=== PATIENT | male | born 2000 | race Hispanic/Latino ===

== ENCOUNTER 2025-02-18 14:32 | Emergency (ER) | payer OTHER ==
[~2025-02-18] VITALS: Ht 175.3 cm; Wt 81.2 kg
--- NOTE | 2025-02-18 14:55 | ERN ---
General Chief Complaint: Multiple Complaints Stated Complaint: FEVER,NAUSEA,DIARRHEA,CHILLS, AND BACK PAIN Time Seen by MD: 14:33 History of Present Illness Initial Comments 24-year-old male otherwise healthy presents for body aches, headache, sore throat, mild cough, nausea, diarrhea. Has been present for about three days now. Allergies: Coded Allergies: No Known Drug Allergies (Unverified Allergy, Unknown, 02/18/25) ROS Dictation VITAL SIGNS: Reviewed. GENERAL APPEARANCE: Alert, oriented x3, no acute distress, obese. HEAD AND FACE: Non-traumatic. EYES: PERRL, pink conjunctivas, eyelid no trauma, anterior chamber clear. EARS: Pinnas intact and no signs of trauma or erythema. Ear canals clear and no discharge. TMs no erythema. NOSE: No discharge, no bleeding. OROPHARYNX: Mouth normal, teeth no caries, tongue pink. Pharynx clear, no moreno thema. Tonsils no exudates, no abscesses noted. Mucous membrane moist. NECK: Supple, non-tender, no thyromegaly, no masses, no JVD, no bruits. BREAST: Deferred. CHEST: No tenderness, no crepitus, no paradoxical movement, no retractions. LUNGS: Clear, well-ventilated, symmetric, no rales, no wheezing, no rhonchi, no stridor, good breath sounds bilaterally. HEART: Regular rate, regular rhythm, no murmur, no gallops. VASCULAR: No peripheral edema. ABDOMEN: Soft, positive bowel sounds, nondistended, no guarding, nontender, no rebound, no masses no hepatomegaly, no splenomegaly, no Perkins's sign, no hernias. RECTAL: Deferred. GENITAL: Deferred. NEUROLOGICAL: Normal speech, gross motor function intact, gross sensory function intact. MUSCULOSKELETAL: Neck nontender, full range of motion, back nontender, full range of motion. EXTREMITIES: Nontender, full range of motion. SKIN: Color pink, dry, no turgor, no rash, no lacerations, no abrasions, no contusions. LYMPHATICS: Deferred. Physical Exam Physical Exam Dictation CONSTITUTIONAL: Fever body ache. HEAD/FACE: No signs of trauma. EENT: Sore throat RESPIRATORY: No cough, no orthopnea, no SOB, no stridor, no wheezing. CARDIOVASCULAR: No chest pain, no edema, no palpitations, no syncope. GASTROINTESTINAL/ABDOMINAL: Nausea abdominal pain vomiting GENITOURINARY: No abnormal discharge, no dysuria, no frequent urination, no hematuria. No complaints of pain in the genitals. MUSCULOSKELETAL: No back pain, no gout, no joint pain, no joint swelling, no muscle pain, no muscle stiffness, no neck pain. INTEGUMENTARY: No change in color, no change in hair/nails, no dryness, no lesion, no lumps, no rash. NEUROLOGICAL/PSYCH: No anxiety, not depressed, no emotional problem, no headache, no numbness, no pre-existing deficit, no history of seizures, no tremors, no weakness. HEMATOLOGIC/LYMPHATIC: Not anemic, no history of blood clots, no apparent bleeding, no bruising, glands not swollen. All Systems Negative, Except as Noted. Results Laboratory and Microbiology Lab and Micro Result Laboratory Tests Test 02/18/25 14:56 02/18/25 16:06 Influenza Type A Antigen Negative For Type A Influenza Type B Antigen Negative For Type B SARS-CoV-2 Antigen (Rapid) PRESUMPTIVE NEGATIVE White Blood Count 9.4 K/uL (4.8-10.8) Red Blood Count 4.91 MIL/uL (4.50-6.20) Hemoglobin 14.9 g/dL (14.0-18.0) Hematocrit 43.5 % (42-54) Mean Corpuscular Volume 88.6 fL (79-99) Mean Corpuscular Hemoglobin 30.3 pg (27.0-33.0) Mean Corpuscular Hemoglobin Concent 34.3 g/dL (32.0-36.0) Red Cell Distribution Width 11.6 % (11.0-15.5) Platelet Count 156 K/uL (130-400) Mean Platelet Volume 10.6 fL (7.5-10.5) H Immature Granulocyte % (Auto) 0.4 % (0-1) Neutrophils (%) (Auto) 72.5 % (40.0-77.0) Lymphocytes (%) (Auto) 12.1 % (21.0-51.0) L Monocytes (%) (Auto) 14.9 % (3.0-13.0) H Eosinophils (%) (Auto) 0.0 % (0.0-8.0) Basophils (%) (Auto) 0.1 % (0.0-5.0) Neutrophils # (Auto) 6.8 K/uL (1.8-7.7) Lymphocytes # (Auto) 1.1 K/uL (1.0-4.8) Monocytes # (Auto) 1.4 K/uL (0.1-1.0) H Eosinophils # (Auto) 0.00 K/uL (0.00-0.70) Basophils # (Auto) 0.01 K/uL (0.00-0.20) Absolute Immature Granulocyte (auto 0.04 K/uL (0-1) Nucleated Red Blood Cells 0.0 % (0.0-0.19) Sodium Level 137 mmol/L (136-145) Potassium Level 3.9 mmol/L (3.5-5.1) Chloride Level 98 mmol/L (101-111) L Carbon Dioxide Level 31 mmol/L (21-32) Blood Urea Nitrogen 10 mg/dL (7-18) Creatinine 1.4 mg/dL (0.5-1.3) H Glomerular Filtration Rate Calc 71 mL/min (>90) Random Glucose 100 mg/dL (70-105) Lactic Acid Level 1.4 mmol/L (0.8-2.5) Total Calcium 8.7 mg/dL (8.5-10.1) MDM CC: Fevers chills body aches cough nausea Historian: Patient was seen comorbidities: None Limitations by social determinants of health: None Differential diagnosis: Viral illness, flu-like illness, bacterial infection, sepsis, other Vital signs: febrile mildly tachycardic 102 otherwise unremarkable. Improved in the ER. Labs ( independently ordered and interpreted by me ): No leukocytosis no anemia. The metabolic panel is unremarkable. Lactic acid is normal. Flu SARS are negative. No imaging indicated With treatment in ED: 1 L lactated Ringer's, 50 mg IV Toradol, Zofran, Tylenol Re-evaluation: Vital signs improved. P.o. tolerant nontoxic in appearance. No signs of SIRS or sepsis. Patient was symptoms most consistent with influenza type illness. He was no obvious source of the infection. We will recommend Tylenol and ibuprofen as an outpatient PCP follow up. ED Course Orders Procedure Category Date Status Time Cbc With Differential LAB 02/18/25 Complete 14:55 Basic Metabolic Panel LAB 02/18/25 Complete 14:55 Lactated Ringers PHA 02/18/25 Complete 1000ml (Lactated 15:00 Lactic Acid LAB 02/18/25 Complete 14:55 Ketorolac PHA 02/18/25 Complete Tromethamine 15mg/Ml 15:00 Covid19 (Sars Antigen LAB 02/18/25 Complete Rapid) 14:55 Influenza Type A & B, LAB 02/18/25 Complete Rapid 14:55 Ondansetron 4mg Inj PHA 02/18/25 Complete (Zofran 4mg Inj) 15:00 Acetaminophen 500mg PHA 02/18/25 Complete Tab (Tylenol 500mg T 15:00 Blood Cult MELLY 02/18/25 Logged 14:55 Current Medications Medications (Trade) Dose Ordered Sig/Elizabeth Route PRN Reason Start Time Stop Time Status Last Admin Dose Admin Acetaminophen (TYLenol 500MG TAB) 1,000 mg ONCE ONCE PO 02/18/25 15:00 02/18/25 15:01 DC 02/18/25 16:18 Ketorolac Tromethamine (toRADol) 15 mg ONCE ONCE IV 02/18/25 15:00 02/18/25 15:01 DC 02/18/25 16:17 Lactated Ringer's 1,000 ml @ 0 mls/hr ONCE ONCE IV 02/18/25 15:00 02/18/25 15:01 DC 02/18/25 16:17 Ondansetron HCl (zoFRAN 4MG INJ) 4 mg ONCE ONCE IVP 02/18/25 15:00 02/18/25 15:01 DC 02/18/25 16:17 Vital Signs Date Time Temp Pulse Resp B/P (MAP) Pulse Ox O2 Delivery O2 Flow Rate FiO2 02/18/25 16:18 102.4 02/18/25 14:51 102.4 102 22 113/69 97 Room Air 0 DX & DISP Disposition: Discharge Departure Impression: Primary Impression: Febrile illness Condition: Stable Scripts Amoxicillin/Potassium Clav (Amox Tr-K Clv 875-125 mg Tab) 875 Mg-125 Mg Tablet 1 TAB PO BID for 10 Days, #20 TAB 0 Refills Prov: TRACEY DEXTER DO 02/18/25 Additional Instructions: The source of your fever is unclear. You may have a viral versus bacterial syndrome. Your lab work is unremarkable. Your flu and COVID swabs are negative. I have prescribed Augmentin, which is an antibiotic. Take as prescribed. Alternate Tylenol (1000 mg) and ibuprofen (800 mg) every 4 hours as needed for fever or discomfort. Follow up with your primary doctor in 48 hours if you continue with symptoms. Referrals: SELF,REFERRAL (PCP) TRACEY DEXTER DO Feb 18, 2025 14:55
[2025-02-18 15:21] LABS: COVID19 (SARS ANTIGEN RAPID) PRESUMPTIVE NEGATIVE (NEGATIVE); INFLUENZA TYPE A Negative For Type A (NEGATIVE); INFLUENZA TYPE B Negative For Type B (NEGATIVE)
[2025-02-18] MEDS: LACTATED RINGERS 1000ML 1,000 ML IV ONE (16:17)
[2025-02-18] MEDS: ketOROlac 15MG/ML VIAL (15MG/ML) IV ONE (16:17)
[2025-02-18] MEDS: ondanSETRON 4MG INJ IVP ONE (16:17)
[2025-02-18] MEDS: acetaMINOPHEN 500 MG TABLET PO ONE (16:18)
[2025-02-18 16:19] LABS: BASOPHILS # (AUTO) 0.01 K/uL (0.00-0.20); BASOPHILS % (AUTO) 0.1 % (0.0-5.0); HEMATOCRIT 43.5 % (42-54); IMMATURE GRANULOCYTE ABSOLUTE 0.04 K/uL (0-1); LYMPHOCYTES # (AUTO) 1.1 K/uL (1.0-4.8); LYMPHOCYTES % (AUTO) 12.1 % (21.0-51.0); MEAN CORPUSCULAR HEMOGLOBIN 30.3 pg (27.0-33.0); MEAN CORPUSCULAR HGB CONC 34.3 g/dL (32.0-36.0); MEAN CORPUSCULAR VOLUME 88.6 fL (79-99); MONOCYTES # (AUTO) 1.4 K/uL (0.1-1.0); MONOCYTES % (AUTO) 14.9 % (3.0-13.0); NEUTROPHILS # (AUTO) 6.8 K/uL (1.8-7.7); NEUTROPHILS % (AUTO) 72.5 % (40.0-77.0); PLATELET COUNT (AUTO) 156 K/uL (130-400); RED BLOOD CELL COUNT(AUTO) 4.91 MIL/uL (4.50-6.20); RED CELL DISTRIBUTION WIDTH 11.6 % (11.0-15.5); WHITE BLOOD COUNT (AUTO) 9.4 K/uL (4.8-10.8)
[2025-02-18 16:22] LABS: CREATININE 1.4 mg/dL (0.5-1.3); POTASSIUM 3.9 mmol/L (3.5-5.1)
[2025-02-18] MEDS ORDERED: AMOX1TAB16 PO (17:05)
[2025-02-18 17:17] VITALS: BP 115/73; PULSE 88; RESP 20; TEMP 100; O2SAT 97
== END 2025-02-18 17:24 | disposition home or self-care (01) ==
LOC: EDH 14:32
DX: R50.9 Fever, unspecified (principal); Z20.822 Contact with and (suspected) exposure to COVID-19
CPT/HCPCS: 99284; 96374; 96361; 96375; 87426; 80048; 85025; 87040 ×2; 87804 ×2; 83605; 36415; J1885; J7120; J2405

== ENCOUNTER 2025-02-19 08:30 | Inpatient (IN) | payer OTHER ==
[~2025-02-19] VITALS: Ht 175.3 cm; Wt 79.3 kg
[~2025-02-19 08:30] MED LIST: AMOX1TAB16 PO
--- NOTE | 2025-02-19 08:37 | NUR ---
PT JUST NOW PLACED IN MY ED BED 9. APPARENTLY PT WAS HERE YESTERDAY WELL AT [facility] [place] [facility]
--- NOTE | 2025-02-19 09:11 | ERN ---
General Chief Complaint: Abdominal Pain Stated Complaint: ABD PAIN Time Seen by MD: 08:32 History of Present Illness Initial Comments 24-year-old male, no medical or surgical history, presents for abdominal pain vomiting diarrhea and fever. Patient reports that he has been having back pains nausea and headache with fever for a few days now. Yesterday's already with diarrhea and vomiting. He was evaluated here, he had lab work which was unremarkable. You returns this morning because he continues with vomiting now he reports that his epigastric area is quite tender. No urinary symptoms. He has not had a stool in a couple of days. Allergies: Coded Allergies: No Known Drug Allergies (Unverified Allergy, Unknown, 02/18/25) Home Meds Active Scripts Amoxicillin/Potassium Clav (Amox Tr-K Clv 875-125 mg Tab) 875 Mg-125 Mg Tablet, 1 TAB PO BID for 10 Days, #20 TAB 0 Refills Prov:TRACEY DEXTER 02/18/25 Past Medical History Past Medical History: No Pertinent History Past Surgical History: Other Surgical History Other: HERNIA REPAIR ROS Dictation CONSTITUTIONAL: Fever HEAD/FACE: No signs of trauma. EENT: No eye pain, no blurred vision, no tearing, no double vision, no ear pain, no ear discharge, no nose pain, no nasal congestion, no throat pain, no throat swelling, no mouth pain. RESPIRATORY: No cough, no orthopnea, no SOB, no stridor, no wheezing. CARDIOVASCULAR: No chest pain, no edema, no palpitations, no syncope. GASTROINTESTINAL/ABDOMINAL: Abdominal pain vomiting diarrhea. GENITOURINARY: No abnormal discharge, no dysuria, no frequent urination, no hematuria. No complaints of pain in the genitals. MUSCULOSKELETAL: No back pain, no gout, no joint pain, no joint swelling, no muscle pain, no muscle stiffness, no neck pain. INTEGUMENTARY: No change in color, no change in hair/nails, no dryness, no lesion, no lumps, no rash. NEUROLOGICAL/PSYCH: No anxiety, not depressed, no emotional problem, no headache, no numbness, no pre-existing deficit, no history of seizures, no tremors, no weakness. HEMATOLOGIC/LYMPHATIC: Not anemic, no history of blood clots, no apparent bleeding, no bruising, glands not swollen. All Systems Negative, Except as Noted. Physical Exam Physical Exam Dictation VITAL SIGNS: Reviewed. GENERAL APPEARANCE: Alert, oriented x3, no acute distress, obese. HEAD AND FACE: Non-traumatic. EYES: PERRL, pink conjunctivas, eyelid no trauma, anterior chamber clear. EARS: Pinnas intact and no signs of trauma or erythema. Ear canals clear and no discharge. TMs no erythema. NOSE: No discharge, no bleeding. OROPHARYNX: Mouth normal, teeth no caries, tongue pink. Pharynx clear, no erythema. Tonsils no exudates, no abscesses noted. Mucous membrane moist. NECK: Supple, non-tender, no thyromegaly, no masses, no JVD, no bruits. BREAST: Deferred. CHEST: No tenderness, no crepitus, no paradoxical movement, no retractions. LUNGS: Clear, well-ventilated, symmetric, no rales, no wheezing, no rhonchi, no stridor, good breath sounds bilaterally. HEART: Regular rate, regular rhythm, no murmur, no gallops. VASCULAR: No peripheral edema. ABDOMEN: Generalized epigastric discomfort RECTAL: Deferred. GENITAL: Deferred. NEUROLOGICAL: Normal speech, gross motor function intact, gross sensory function intact. MUSCULOSKELETAL: Neck nontender, full range of motion, back nontender, full range of motion. EXTREMITIES: Nontender, full range of motion. SKIN: Color pink, dry, no turgor, no rash, no lacerations, no abrasions, no contusions. LYMPHATICS: Deferred. Results Laboratory and Microbiology Lab and Micro Result Laboratory Tests Test 02/19/25 08:40 02/19/25 11:40 White Blood Count 8.7 K/uL (4.8-10.8) Red Blood Count 5.18 MIL/uL (4.50-6.20) Hemoglobin 15.9 g/dL (14.0-18.0) Hematocrit 46.2 % (42-54) Mean Corpuscular Volume 89.2 fL (79-99) Mean Corpuscular Hemoglobin 30.7 pg (27.0-33.0) Mean Corpuscular Hemoglobin Concent 34.4 g/dL (32.0-36.0) Red Cell Distribution Width 11.6 % (11.0-15.5) Platelet Count 152 K/uL (130-400) Mean Platelet Volume 10.7 fL (7.5-10.5) H Immature Granulocyte % (Auto) 0.3 % (0-1) Neutrophils (%) (Auto) 76.5 % (40.0-77.0) Lymphocytes (%) (Auto) 10.8 % (21.0-51.0) L Monocytes (%) (Auto) 12.1 % (3.0-13.0) Eosinophils (%) (Auto) 0.1 % (0.0-8.0) Basophils (%) (Auto) 0.2 % (0.0-5.0) Neutrophils # (Auto) 6.6 K/uL (1.8-7.7) Lymphocytes # (Auto) 0.9 K/uL (1.0-4.8) L Monocytes # (Auto) 1.1 K/uL (0.1-1.0) H Eosinophils # (Auto) 0.01 K/uL (0.00-0.70) Basophils # (Auto) 0.02 K/uL (0.00-0.20) Absolute Immature Granulocyte (auto 0.03 K/uL (0-1) Nucleated Red Blood Cells 0.0 % (0.0-0.19) Prothrombin Time 10.7 SEC (9.6-11.6) Prothromb Time International Ratio 1.01 (0.85-1.15) Sodium Level 140 mmol/L (136-145) Potassium Level 3.6 mmol/L (3.5-5.1) Chloride Level 99 mmol/L (101-111) L Carbon Dioxide Level 32 mmol/L (21-32) Blood Urea Nitrogen 10 mg/dL (7-18) Creatinine 1.2 mg/dL (0.5-1.3) Glomerular Filtration Rate Calc 86 mL/min (>90) Random Glucose 104 mg/dL (70-105) Lactic Acid Level 3.5 mmol/L (0.8-2.5) H Total Calcium 8.6 mg/dL (8.5-10.1) Total Bilirubin 1.3 mg/dL (0.2-1.0) H Direct Bilirubin 0.3 mg/dL (0.0-0.3) Aspartate Amino Transf (AST/SGOT) 35 U/L (10-37) Alanine Aminotransferase (ALT/SGPT) 62 U/L (12-78) Alkaline Phosphatase 64 U/L (50-136) Total Protein 7.9 g/dL (6.0-8.3) Albumin 3.8 g/dL (3.5-5.0) Lipase 40 U/L (16-77) Urine Color LIGHT-YELLOW (YELLOW) Urine Appearance CLEAR (CLEAR) Urine pH 8.0 (5.0-8.0) Urine Specific [place] 1.016 (1.001-1.031) Urine Protein 10 mg/dL (NEGATIVE) H Urine Glucose (UA) NEGATIVE mg/dL (NEGATIVE) Urine Ketones 20 mg/dL (NEGATIVE) H Urine Occult Blood NEGATIVE (NEGATIVE) Urine Nitrate NEGATIVE (NEGATIVE) Urine Bilirubin NEGATIVE mg/dL (NEGATIVE) Urine Urobilinogen 2.0 mg/dL (0.2-1.0) H Urine Leukocyte Esterase NEGATIVE [place]/uL Urine RBC 2-5 /HPF (0-1) H Urine WBC 0-1 /HPF (0-1) Urine Squamous Epithelial Cells RARE /HPF (0-2) Urine Bacteria None /HPF (None Seen) MDM CC: Fever, body aches, nausea, vomiting, fevers some loose stools. Historian: Patient Comorbidities: None Limitations by social determinants of health: None Differential diagnosis: Sepsis, GI pathology, surgical pathology, viral illness, other. Vital signs: Febrile, 101.8, pulse 122, respiration stable blood pressure stable. Labs (independently ordered and interpreted by me. The CBC shows a white count 8.7 K, there was no shift. The metabolic panel is relatively unremarkable, mildly elevated creatinine 1.2. Lactic acid is elevated 3.5. Coags are stable Lipase stable CT of the abdomen and pelvis unremarkable Treatment in ED: 1 g Rocephin, lactated Ringer's Patient was trigger sepsis. This is a 2nd visit. I do not see any obvious source of infection. I discussed the plan with the patient, since this is 2nd visit in the procedure with the vomiting, we will admit for IV fluids in to make sure that it he lactic corrects and to ensure that the fever resolves. Fever of unknown source, sepsis unknown source. Patient was agreeable to this plan. On sepsis focused re-evaluation after the fluid bolus and antibiotics, the patient was stable perfusion, cap refill less than 2 seconds, stable vital signs. Consultation: Hospitalist for admission. Patient agrees with the plan ED Course Orders Procedure Category Date Status Time Ct Abdomen/Pelvis CT 02/19/25 Resulted W/Contrast 09:04 Lactated Ringers PHA 02/19/25 Complete 1000ml (Lactated 09:30 Morphine 4mg Syg PHA 02/19/25 Complete (Morphine 4mg Syg) 09:30 Ondansetron 4mg Inj PHA 02/19/25 Complete (Zofran 4mg Inj) 09:30 Cbc With Differential LAB 02/19/25 Complete 08:40 Basic Metabolic Panel LAB 02/19/25 Complete 08:40 Hepatic Function Panel LAB 02/19/25 Complete 08:40 Lactic Acid (Removed) LAB 02/19/25 Complete 08:40 Lipase LAB 02/19/25 Complete 08:40 Prolactin LAB 02/19/25 In Process 08:40 Prothrombin Time With LAB 02/19/25 Complete INR 08:40 Blood Cult MELLY 02/19/25 In Process 08:40 Blood Cult MELLY 02/19/25 In Process 08:40 Ketorolac PHA 02/19/25 Complete Tromethamine 15mg/Ml 10:00 Lactated Ringers PHA 02/19/25 In Process 1000ml (Lactated 10:30 Iohexol (Omnipaque) PHA 02/19/25 Complete 11:21 Urinalysis Profile LAB 02/19/25 Complete 11:40 Acetaminophen 500mg PHA 02/19/25 Complete Tab (Tylenol 500mg T 13:00 Ondansetron 4mg Inj PHA 02/19/25 Complete (Zofran 4mg Inj) 13:30 Ceftriaxone 1g Vial PHA 02/19/25 In Process (Rocephine 1g Inj) 14:00 Current Medications Medications (Trade) Dose Ordered Sig/Elizabeth Route PRN Reason Start Time Stop Time Status Last Admin Dose Admin Acetaminophen (TYLenol 500MG TAB) 1,000 mg ONCE ONCE PO 02/19/25 13:00 02/19/25 13:01 DC 02/19/25 13:05 Ceftriaxone Sodium (ROCEphine 1G INJ) 1 gm ONCE ONCE IVPB 02/19/25 14:00 02/19/25 14:01 Iohexol (Omnipaque) 75 ml STK-MED ONCE IV 02/19/25 11:21 02/19/25 11:21 DC Ketorolac Tromethamine (toRADol) 15 mg ONCE ONCE IV 02/19/25 10:00 02/19/25 10:01 DC 02/19/25 13:05 Lactated Ringer's 1,000 ml @ 999 mls/hr Q1H1M IV 02/19/25 09:30 02/19/25 10:25 DC 02/19/25 09:14 Lactated Ringer's 1,000 ml @ 999 mls/hr Q1H1M IV 02/19/25 10:30 03/21/25 10:29 02/19/25 13:27 Morphine Sulfate (morPHINE 4MG SYG) 4 mg ONCE ONCE IVP 02/19/25 09:30 02/19/25 09:31 DC 02/19/25 09:14 Ondansetron HCl (zoFRAN 4MG INJ) 4 mg ONCE ONCE IVP 02/19/25 09:30 02/19/25 09:31 DC 02/19/25 09:14 Ondansetron HCl (zoFRAN 4MG INJ) 4 mg ONCE ONCE IVP 02/19/25 13:30 02/19/25 13:31 DC Vital Signs Date Time Temp Pulse Resp B/P (MAP) Pulse Ox O2 Delivery O2 Flow Rate FiO2 02/19/25 13:05 102.6 02/19/25 12:35 102.4 99 18 125/71 99 Room Air* 0 21 02/19/25 08:31 101.8 122 20 130/78 99 Room Air 0 DX & DISP Disposition: Inpatient Departure Impression: Primary Impression: Sepsis Additional Impressions: Dehydration, Gastroenteritis Critical Time: 30 minutes (Critical Care Procedure NoteAuthorized and Performed by: meTotal critical care time: Approximately 36 minutesDue to a high probability of clinically significant, life threatening deterioration, the patient required my highest level of preparedness to intervene emergently and I personally spent this critical care time directly and personally managing the patient. This critical care time included obtaining a history; examining the patient; pulse oximetry; ordering and review of studies; arranging urgent treatment with development of a management plan; evaluation of patient's response to treatment; frequent reassessment; and, discussions with other providers.This critical care time was performed to assess and manage the high probability of imminent, life-threatening deterioration that could result in multi-organ failure. It was exclusive of separately billable procedures and treating other patients and teaching time.Please see MDM section and the rest of the note for further information on patient assessment and treatment.) Condition: Stable Referrals: HOSEA ELLINGTON MD (PCP) TRACEY DEXTER DO February 19, 2025 09:11
[2025-02-19] MEDS: morPHINE 4 MG SYG IVP ONE (09:14)
[2025-02-19] MEDS: ondanSETRON 4MG INJ IVP ONE ×2 (09:14→14:27)
[2025-02-19] MEDS: LACTATED RINGERS 1000ML 1,000 ML IV SCH ×2 (09:14→10:38)
[2025-02-19 09:17] LABS: BASOPHILS # (AUTO) 0.02 K/uL (0.00-0.20); BASOPHILS % (AUTO) 0.2 % (0.0-5.0); EOSINOPHILS # (AUTO) 0.01 K/uL (0.00-0.70); EOSINOPHILS % (AUTO) 0.1 % (0.0-8.0); HEMATOCRIT 46.2 % (42-54); IMMATURE GRANULOCYTE ABSOLUTE 0.03 K/uL (0-1); LYMPHOCYTES # (AUTO) 0.9 K/uL (1.0-4.8); LYMPHOCYTES % (AUTO) 10.8 % (21.0-51.0); MEAN CORPUSCULAR HEMOGLOBIN 30.7 pg (27.0-33.0); MEAN CORPUSCULAR HGB CONC 34.4 g/dL (32.0-36.0); MEAN CORPUSCULAR VOLUME 89.2 fL (79-99); MONOCYTES # (AUTO) 1.1 K/uL (0.1-1.0); MONOCYTES % (AUTO) 12.1 % (3.0-13.0); NEUTROPHILS # (AUTO) 6.6 K/uL (1.8-7.7); NEUTROPHILS % (AUTO) 76.5 % (40.0-77.0); PLATELET COUNT (AUTO) 152 K/uL (130-400); RED BLOOD CELL COUNT(AUTO) 5.18 MIL/uL (4.50-6.20); RED CELL DISTRIBUTION WIDTH 11.6 % (11.0-15.5); WHITE BLOOD COUNT (AUTO) 8.7 K/uL (4.8-10.8)
[2025-02-19 09:21] LABS: ALBUMIN 3.8 g/dL (3.5-5.0); BILIRUBIN,DIRECT 0.3 mg/dL (0.0-0.3); BILIRUBIN,TOTAL 1.3 mg/dL (0.2-1.0); CREATININE 1.2 mg/dL (0.5-1.3); POTASSIUM 3.6 mmol/L (3.5-5.1); TOTAL PROTEIN, SERUM 7.9 g/dL (6.0-8.3)
[2025-02-19 09:24] LABS: INR 1.01 (0.85-1.15); PROTHROMBIN TIME 10.7 SEC (9.6-11.6)
--- NOTE | 2025-02-19 10:36 | NUR ---
PT STILL PENDING CT SCAN. CT WAS CALLED AND I WAS INFORMED PT IS ON "THE LIST" TO BE DONE
[2025-02-19] MEDS ORDERED: IOHEXOL-350 75 ML VIAL IV ONE (11:21)
--- NOTE | 2025-02-19 11:22 | NUR ---
PT WAS TAKEN TO CT SCAN
--- NOTE | 2025-02-19 11:40 | NUR ---
PT JUST RETURNED FROM CT SCAN
[2025-02-19 12:00] LABS: ADD UA MICROSCOPIC YES; APPEARANCE,URINE CLEAR (CLEAR); BILIRUBIN,URINE NEGATIVE (NEGATIVE); COLOR,URINE LIGHT-YELLOW (YELLOW); GLUCOSE, URINE (UA) NEGATIVE (NEGATIVE); KETONES,URINE 20 mg/dL (NEGATIVE); LEUKOCYTE ESTERASE ,URINE NEGATIVE Leu/uL (NEGATIVE); NITRATE,URINE NEGATIVE (NEGATIVE); OCCULT BLOOD,URINE NEGATIVE (NEGATIVE); PROTEIN,URINE 10 mg/dL (NEGATIVE)
[2025-02-19 12:01] LABS: SQUAMOUS EPITHELIAL CELL,UR RARE /HPF (0-2); WBC,URINE 0-1 /HPF (0-1)
--- NOTE | 2025-02-19 12:17 | NUR ---
CT REPORT STILL PENDING
--- NOTE | 2025-02-19 13:02 | HMCIMG ---
CT ABDOMEN/PELVIS W/CONTRAST HISTORY: Abdominal pain COMPARISON: None TECHNIQUE: Multiple sequential axial images of the abdomen and pelvis were obtained from the dome of the diaphragm through symphysis pubis. Patient was not given contrast through intravenous route. Oral contrast was not given. FINDINGS: No pleural effusion is seen bilaterally. There is no evidence of parenchymal disease or pulmonary nodule of the visualized lower lungs. Degenerative changes of the thoracolumbar spine are present. The heart is not enlarged. Liver is enlarged measuring 17 cm. Fatty changes of the liver are noted. The liver, spleen, adrenal glands and pancreas are unremarkable. There is no evidence of hydronephrosis bilaterally. No evidence of renal stone is seen. Fecal material is seen in the colon. There are normal size retroperitoneal and mesenteric lymph nodes. No ascites is seen. No CT evidence of acute appendicitis is seen. Clinical correlation is recommended. Pelvic sidewalls are symmetric bilaterally. Bladder is well distended without wall thickening. IMPRESSION: 1. Fecal material is seen in the colon. No ascites is seen. CT was performed with one or more following dose reduction techniques: automated exposure control, adjustment of the mA and kv according to patient's size, or use of a iterative reconstruction technique.
[2025-02-19] MEDS: acetaMINOPHEN 500 MG TABLET PO ONE (13:05)
[2025-02-19] MEDS: ketOROlac 15MG/ML VIAL (15MG/ML) IV ONE (13:05)
[2025-02-19] MEDS: cefTRIAXone 1G VIAL IVPB ONE (14:42)
--- NOTE | 2025-02-19 14:56 | NUR ---
SADIE JUST ARRIVED AT BEDSIDE TO SEE THE PT.
[2025-02-19] MEDS ORDERED: BENZOCAINE/MENTH/CETYLPYRD CL 1 EACH LOZENGE MM PRN (15:00)
[2025-02-19] MEDS ORDERED: DiphenhydrAMINE HCL 50 MG/ML VIAL IV PRN (15:00)
[2025-02-19] MEDS ORDERED: LOPERAMIDE HCL 2 MG CAP PO PRN (15:00)
[2025-02-19] MEDS ORDERED: ARTIFICAL TEARS SOL 15 ML OP PRN (15:00)
[2025-02-19] MEDS ORDERED: ondanSETRON 4MG INJ IV PRN (15:00)
[2025-02-19] MEDS ORDERED: guaiFENesin SUGAR-FREE 100 MG/5 ML UDCUP PO PRN (15:00)
[2025-02-19] MEDS ORDERED: guaiFENesin-DM 200/20MG 10ML PO PRN (15:00)
[2025-02-19 15:38] LABS: THYROID STIMULATING HORMONE 0.94 uIU/mL (0.36-3.74)
--- NOTE | 2025-02-19 16:17 | HP ---
[facility] HISTORY & PHYSICAL Date Patient Seen: February 19, 2025 Time of Visit: 16:17 Supervising Physician: [Dr. Weiss] Primary Care Physician: [ ] Outpatient Specialists: [ ] Inpatient Consults: [ ] PROBLEM LIST: Sepsis without septic shock, POA Acute gastroenteritis, POA Acute dehydration, POA Febrile illness, POA Lactic acidosis, POA resolved Hyperbilirubinemia, POA Intractable abdominal pain HPI: [This is a 24-year-old male with no established medical history presents to the ED for evaluation of nausea, vomiting and fever. He was evaluated in the ED with the same yesterday and discharged home. Patient states he continues with generalized body aches an upset stomach, prompting a visit back to the ED. he was found with fever again in the ED today and triggered sepsis protocol. His l actic acid was elevated at 3.5, improved with 1 L LR. He did have hyperbilirubinemia at 1.3 but otherwise his lab work including CBC and CMP have otherwise been unremarkable, lipase is 40. A CT of the abdomen showed fecal material but otherwise unremarkable. He is pending blood cultures. Patient was treated with IVF, Tylenol, Toradol, Zofran, morphine and Rocephin. Upon exam h e was found acutely ill-appearing. He has right upper quadrant tenderness with palpation, positive Perkins's sign. Patient denies any previous abdominal surgeries. He reports several episodes of nonbloody vomiting and diarrhea yesterday. Denies any sick contacts at home. No history of drug use.] PAST MEDICAL HX: see above PAST SURGICAL HX: noncontributory SOCIAL HISTORY: No tobacco, ETOH, or illicit drug use Coded Allergies: No Known Drug Allergies (Unverified Allergy, Unknown, 02/18/25) REVIEW OF SYSTEMS: 12 point ROS reviewed with patient. Pertinent positives mentioned above. Otherwise negative. PHYSICAL EXAM: GENERAL: alert, awake oriented x 3, appears weak and ill HEENT: EOMI, Sclera non icteric, moist mucosa NECK: Supple, no JVD, trachea midline LUNGS: Clear breath sounds bilaterally. No wheezes HEART: Regular rate and rhythm. Normal S1 and S2, without murmurs ABD: Abdomen soft, tender to palpation, positive perkins's sign. Bowel sounds present EXT: No clubbing cyanosis or edema NEURO: Alert and oriented to person, follows commands Vital Signs (last 8hr) Date Time Temp Pulse Resp B/P (MAP) Pulse Ox O2 Delivery O2 Flow Rate FiO2 02/19/25 14:25 100.0 91 18 114/65 99 Room Air* 0 21 02/19/25 13:05 102.6 02/19/25 12:35 102.4 99 18 125/71 99 Room Air* 0 21 02/19/25 08:31 101.8 122 20 130/78 99 Room Air 0 LABS: Hematology Labs: Test 02/19/25 08:40 Range/Units White Blood Count 8.7 4.8-10.8 K/uL Red Blood Count 5.18 4.50-6.20 MIL/uL Hemoglobin 15.9 14.0-18.0 g/dL Hematocrit 46.2 42-54 % Mean Corpuscular Volume 89.2 79-99 fL Mean Corpuscular Hemoglobin 30.7 27.0-33.0 pg Mean Corpuscular Hemoglobin Concent 34.4 32.0-36.0 g/dL Red Cell Distribution Width 11.6 11.0-15.5 % Platelet Count 152 130-400 K/uL Mean Platelet Volume 10.7 H 7.5-10.5 fL Immature Granulocyte % (Auto) 0.3 0-1 % Neutrophils (%) (Auto) 76.5 40.0-77.0 % Lymphocytes (%) (Auto) 10.8 L 21.0-51.0 % Monocytes (%) (Auto) 12.1 3.0-13.0 % Eosinophils (%) (Auto) 0.1 0.0-8.0 % Basophils (%) (Auto) 0.2 0.0-5.0 % Neutrophils # (Auto) 6.6 1.8-7.7 K/uL Lymphocytes # (Auto) 0.9 L 1.0-4.8 K/uL Monocytes # (Auto) 1.1 H 0.1-1.0 K/uL Eosinophils # (Auto) 0.01 0.00-0.70 K/uL Basophils # (Auto) 0.02 0.00-0.20 K/uL Absolute Immature Granulocyte (auto 0.03 0-1 K/uL Nucleated Red Blood Cells 0.0 0.0-0.19 % Chemistry Labs: Test 02/19/25 15:03 02/19/25 08:40 Range/Units Lactic Acid Level 1.1 0.8-2.5 mmol/L Gamma Glutamyl Transpeptidase 63 5-85 U/L Procalcitonin 0.24 0.05-0.5 ng/mL Thyroid Stimulating Hormone (TSH) 0.94 0.36-3.74 uIU/mL Sodium Level 140 136-145 mmol/L Potassium Level 3.6 3.5-5.1 mmol/L Chloride Level 99 L 101-111 mmol/L Carbon Dioxide Level 32 21-32 mmol/L Blood Urea Nitrogen 10 7-18 mg/dL Creatinine 1.2 0.5-1.3 mg/dL Glomerular Filtration Rate Calc 86 >90 mL/min Random Glucose 104 70-105 mg/dL Total Calcium 8.6 8.5-10.1 mg/dL Total Bilirubin 1.3 H 0.2-1.0 mg/dL Direct Bilirubin 0.3 0.0-0.3 mg/dL Aspartate Amino Transf (AST/SGOT) 35 10-37 U/L Alanine Aminotransferase (ALT/SGPT) 62 12-78 U/L Alkaline Phosphatase 64 50-136 U/L Total Protein 7.9 6.0-8.3 g/dL Albumin 3.8 3.5-5.0 g/dL Lipase 40 16-77 U/L Coagulation Labs: Test 02/19/25 08:40 Range/Units Prothrombin Time 10.7 9.6-11.6 SEC Prothromb Time International Ratio 1.01 0.85-1.15 DIAGNOSTICS / RADIOLOGY RESULTS: [ ] PLAN Admit to med/surg Continue IVF with LR until completed Start clear liquid diet and advance as tolerated Continue Rocephin x1 dose Order COVID, flu and strep swabs Order GGT and abdominal ultrasound Follow blood culture Toradol for pain Lactulose and GI cocktail Monitor response to treatment Further management per hospital with a course NEURO: Minimize central acting medications as possible. Maintain fall precautions, adequate lighting during the day PULMONARY: Supplemental 02 as needed. Maintain aspiration precautions at all times CARDIOVASCULAR: Follow hemodynamics. Vital signs per facility protocol GI & NUTRITION: Continue with nutritional support. Continue stool softeners and laxatives as needed. KIDNEYS & ELECTROLYTES: Strict monitoring of intake, output and overall fluid balance. Avoid nephrotoxic medications to the extent possible. Medications to be dosed according to renal function. Monitor electrolytes and replace as needed ENDOCRINE: Maintain blood glucose between 100-180 at all times. Hypoglycemia protocol in place INFECTIOUS DISEASE: Trend temperature, WBC and procalcitonin level Follow cultures, deescalate antibiotics as soon as possible. Panculture if new onset fever ONCOLOGY/HEMATOLOGY/COAGULATION: Monitor for s/s of bleeding Monitor hemoglobin, coagulation studies as needed SKIN: Pressure ulcer prevention per facility protocol Specialty mattress ORTHO/REHAB: Continue PT/OT Prophylaxis: Continue GI and DVT prophylaxis Code Status: Full Resuscitation Disposition: TBD Other: Total patient care time exceeds 35 minutes excluding all procedures. SADIE ROBERTO February 19, 2025 16:17
--- NOTE | 2025-02-19 17:02 | NUR ---
SONO TECHS ARRIVED AT BEDSIDE TO PERFORM EXAM ON A PT.
--- NOTE | 2025-02-19 18:20 | NUR ---
SPEECH TRIGGER COMPLETED / AGE, DEHYDRATION Pt IS A 24 Y.O. MALE ADMITTED SECONDARY TO DEHYDRATION AND AGE. NO PAST MEDICAL HISTORY REPORTED. Pt CURRENTLY ON CLEAR LIQUID DIET (THIN LIQUIDS) WITH NOTES TO ADVANCE TOLERATED. PER NURSE NELSON, Pt TOLERATING DIET WITH NO OVERT S/S OF ASPIRATION. PLEASE REQUEST SPEECH THERAPY SERVICES FOR SKILLED BEDSIDE SWALLOW EVALUATION IF Pt PRESENTS WITH +S/S OF ASPIRATION SUCH COUGH RESPONSE, THROAT CLEAR, OR WET VOCAL QUALITY DURING ORAL INTAKE. ALL QUESTIONS ANSWERED AT THIS TIME. Addendum: 02/19/[address] [facility]ILI Amended: Links added.
--- NOTE | 2025-02-19 19:13 | NUR ---
REPORT ENDORSED TO MIGUEL GOOD
[2025-02-19] MEDS: FAMOTIDINE 20MG TAB PO SCH (20:08)
[2025-02-19] MEDS ORDERED: FAMOTIDINE 20MG VIAL IV PRN (21:00)
[2025-02-20] VITALS (9 sets, daily range): BP systolic 110–143; BP diastolic 59–78; PULSE 65–84; RESP 16–18; TEMP 98.8–101.4; O2SAT 94–97
[2025-02-20] MEDS: ketOROlac 30MG VIAL (30MG/ML) IM PRN (00:59)
--- NOTE | 2025-02-20 01:19 | NUR ---
REPORT GIVEN TO NURSE FAY RN PATIENT PENDING TO BE TRANSFERRED TO ROOM 324 WILL CONT TO MONITOR
[2025-02-20] MEDS: LIDOCAINE HCL 2% VISCOUS 30 ML, MAG/ALUM/SIMETH 30ML 30 ML, DICYCLOMINE HCL 20 MG PO PRN (05:47)
[2025-02-20] MEDS: LACTULOSE 20 GM/30 ML UDCUP PO ONE (05:55)
[2025-02-20 06:28] LABS: ALBUMIN 3.2 g/dL (3.5-5.0); POTASSIUM 4.2 mmol/L (3.5-5.1); TOTAL PROTEIN, SERUM 7.1 g/dL (6.0-8.3)
--- NOTE | 2025-02-20 10:11 | PN ---
[facility] PROGRESS NOTE Date Patient Seen: February 20, 2025 Time of Visit: 10:11 Supervising Physician: [Dr. Maxwell] Primary Care Physician: [No PCP] Outpatient Specialists: [ ] Inpatient Consults: [ ] PROBLEM LIST: Sepsis without septic shock, POA Acute gastroenteritis, POA Acute dehydration, POA Febrile illness, POA Lactic acidosis, POA resolved Hyperbilirubinemia, POA Intractable abdominal pain INTERVAL HISTORY: [Patient was evaluated at bedside. He had low-grade fever this morning now improved. Patient obtain an abdominal ultrasound, pending official results. He reports one episode of vomiting after eating jello. States continues with loose stool 3-5 which he describes as watery and black. Hgb remains with a normal limits. No current abdominal pain. He was UA is negative and blood cultures negative. Strep screening is negative, COVID a and flu canceled as they were ordered on previous visit.] REVIEW OF SYSTEMS: 12 point ROS reviewed with patient. Pertinent positives mentioned above. Otherwise negative. PHYSICAL EXAM: GENERAL: alert, awake oriented x 3, appears weak and ill HEENT: EOMI, Sclera non icteric, moist mucosa NECK: Supple, no JVD, trachea midline LUNGS: Clear breath sounds bilaterally. No wheezes HEART: Regular rate and rhythm. Normal S1 and S2, without murmurs ABD: Abdomen soft, tender to palpation, positive cheek's sign. Bowel sounds present EXT: No clubbing cyanosis or edema NEURO: Alert and oriented to person, follows commands Vital Signs (last 8hr) Date Time Temp Pulse Resp B/P (MAP) Pulse Ox O2 Delivery O2 Flow Rate FiO2 02/20/25 07:50 99.3 77 16 119/68 98 Room Air 02/20/25 03:46 98.8 66 18 121/59 96 Room Air LABS: Hematology Labs: Test 02/19/25 08:40 Range/Units White Blood Count 8.7 4.8-10.8 K/uL Red Blood Count 5.18 4.50-6.20 MIL/uL Hemoglobin 15.9 14.0-18.0 g/dL Hematocrit 46.2 42-54 % Mean Corpuscular Volume 89.2 79-99 fL Mean Corpuscular Hemoglobin 30.7 27.0-33.0 pg Mean Corpuscular Hemoglobin Concent 34.4 32.0-36.0 g/dL Red Cell Distribution Width 11.6 11.0-15.5 % Platelet Count 152 130-400 K/uL Mean Platelet Volume 10.7 H 7.5-10.5 fL Immature Granulocyte % (Auto) 0.3 0-1 % Neutrophils (%) (Auto) 76.5 40.0-77.0 % Lymphocytes (%) (Auto) 10.8 L 21.0-51.0 % Monocytes (%) (Auto) 12.1 3.0-13.0 % Eosinophils (%) (Auto) 0.1 0.0-8.0 % Basophils (%) (Auto) 0.2 0.0-5.0 % Neutrophils # (Auto) 6.6 1.8-7.7 K/uL Lymphocytes # (Auto) 0.9 L 1.0-4.8 K/uL Monocytes # (Auto) 1.1 H 0.1-1.0 K/uL Eosinophils # (Auto) 0.01 0.00-0.70 K/uL Basophils # (Auto) 0.02 0.00-0.20 K/uL Absolute Immature Granulocyte (auto 0.03 0-1 K/uL Nucleated Red Blood Cells 0.0 0.0-0.19 % Chemistry Labs: Test 02/20/25 09:38 02/20/25 05:58 02/19/25 15:03 02/19/25 08:40 Range/Units Lactic Acid Level 1.1 0.8-2.5 mmol/L Sodium Level 140 136-145 mmol/L Potassium Level 4.2 3.5-5.1 mmol/L Chloride Level 103 101-111 mmol/L Carbon Dioxide Level 30 21-32 mmol/L Blood Urea Nitrogen 8 7-18 mg/dL Creatinine 1.0 0.5-1.3 mg/dL Glomerular Filtration Rate Calc 106 >90 mL/min Random Glucose 94 70-105 mg/dL Total Calcium 8.5 8.5-10.1 mg/dL Total Bilirubin 1.0 # 0.2-1.0 mg/dL Aspartate Amino Transf (AST/SGOT) 38 H 10-37 U/L Alanine Aminotransferase (ALT/SGPT) 63 12-78 U/L Alkaline Phosphatase 57 50-136 U/L Total Creatine Kinase 301 H 21-232 U/L Total Protein 7.1 6.0-8.3 g/dL Albumin 3.2 L 3.5-5.0 g/dL Gamma Glutamyl Transpeptidase 63 5-85 U/L Procalcitonin 0.24 0.05-0.5 ng/mL Thyroid Stimulating Hormone (TSH) 0.94 0.36-3.74 uIU/mL Direct Bilirubin 0.3 0.0-0.3 mg/dL Lipase 40 16-77 U/L Coagulation Labs: Test 02/19/25 08:40 Range/Units Prothrombin Time 10.7 9.6-11.6 SEC Prothromb Time International Ratio 1.01 0.85-1.15 DIAGNOSTICS / RADIOLOGY RESULTS: [ ] PLAN Order diarrhea workup, febrile agglutinins and HIV screen Order Monospot, urine drug screen Continue IVF until diet established Advance diet as tolerated Pending abdominal ultrasound Follow blood culture results Toradol for pain Lactulose and GI cocktail p.r.n. Monitor response to treatment Further management per hospital per course NEURO: Minimize central acting medications as possible. Maintain fall precautions, adequate lighting during the day PULMONARY: Supplemental 02 as needed. Maintain aspiration precautions at all times CARDIOVASCULAR: Follow hemodynamics. Vital signs per facility protocol GI & NUTRITION: Continue with nutritional support. Continue stool softeners and laxatives as needed. KIDNEYS & ELECTROLYTES: Strict monitoring of intake, output and overall fluid balance. Avoid nephrotoxic medications to the extent possible. Medications to be dosed according to renal function. Monitor electrolytes and replace as needed ENDOCRINE: Maintain blood glucose between 100-180 at all times. Hypoglycemia protocol in place INFECTIOUS DISEASE: Trend temperature, WBC and procalcitonin level Follow cultures, deescalate antibiotics as soon as possible. Panculture if new onset fever ONCOLOGY/HEMATOLOGY/COAGULATION: Monitor for s/s of bleeding Monitor hemoglobin, coagulation studies as needed SKIN: Pressure ulcer prevention per facility protocol Specialty mattress ORTHO/REHAB: Continue PT/OT Prophylaxis: Continue GI and DVT prophylaxis Code Status: Full Resuscitation Disposition: TBD Other: Total patient care time exceeds 35 minutes excluding all procedures. SADIE ROBERTO February 20, 2025 10:11
--- NOTE | 2025-02-20 11:57 | HMCIMG ---
US ABDOMINAL COMPLETE HISTORY: Fever and vomiting COMPARISON: None TECHNIQUE: Multiple transverse and longitudinal ultrasound images of the abdomen were obtained. FINDINGS: Abdominal aorta and inferior vena cava are unremarkable. The visualized portion of the pancreas is within normal limits. Liver is echogenic consistent with liver parenchymal disease. Liver measures 14 cm. Gallstones and sludge material are seen in the gallbladder and gallbladder neck region. There is pericholecystic fluid. Common duct measures 4 mm. No evidence of gallbladder wall thickening is seen. Both kidneys are seen. Right kidney measures 10.5 x 5.9 x 4.2 cm. Left kidney measures 10.8 x 4.3 x 4.2 cm. No hydronephrosis is seen of the both kidneys. The spleen is grossly unremarkable. The spleen measures 12.6 cm. IMPRESSION: 1. Gallstones and sludge material in the gallbladder. Pericholecystic fluid. No ductal dilatation is seen. 2. No hydronephrosis is seen.
--- NOTE | 2025-02-20 14:03 | NUR ---
DCP Pt awake, alert, oriented X3 lives alone in a townhouse. PCP is Gil Flores. Pt verbalizes being Independent. Does not have any DME. Point of contact is sister Ness Haynes [phone]. Pt states he has had PT as outpatient back in 2022. Anticipates discharge plan is for home. Addendum: 02/20/25 at 1434 by TOVA FERREIRA RN CM Amended: Links added.
[2025-02-20 15:26] LABS: MONOTEST NEGATIVE (NEGATIVE)
[2025-02-20 15:27] LABS: HIV 1&2 ANTIBODY Non-Reactive (Negative); HIV-1 p24 Antigen Non-Reactive (Negative)
[2025-02-20 17:38] LABS: AMPHET/METH SCREEN,URINE NEGATIVE (NEGATIVE); BARBITURATE SCREEN, URINE NEGATIVE (NEGATIVE); BENZODIAZEPINES SCREEN,URINE NEGATIVE (NEGATIVE); CANNABINOID SCREEN,URINE NEGATIVE (NEGATIVE); COCAINE SCREEN,URINE NEGATIVE (NEGATIVE); OPIATE SCREEN,URINE NEGATIVE (NEGATIVE); PHENCYCLIDINE SCREEN,URINE NEGATIVE (NEGATIVE)
[2025-02-20] MEDS: acetaMINOPHEN 325 MG TAB PO PRN (21:49)
[2025-02-21] VITALS (7 sets, daily range): BP systolic 101–128; BP diastolic 53–71; PULSE 73–93; RESP 18–20; TEMP 98.2–99.1; O2SAT 96–98
[2025-02-21] MEDS: MAG/ALUM/SIMETH 30 ML UDCUP PO PRN (07:13)
[2025-02-21] MEDS: PANTOPrazole 40 MG/VIAL IVP SCH (08:20)
[2025-02-21] MEDS: cefTRIAXone 1G VIAL IVPB SCH (15:27)
--- NOTE | 2025-02-21 15:34 | EKG ---
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
[2025-02-21] MEDS ORDERED: ketOROlac 30MG VIAL (30MG/ML) IVP PRN (16:30)
[2025-02-21] MEDS: ketOROlac 30MG VIAL (30MG/ML) IVP PRN (16:42)
--- NOTE | 2025-02-21 18:57 | PN ---
[facility] PROGRESS NOTE Date Patient Seen: February 21, 2025 Time of Visit: 18:57 Supervising Physician: [Dr. Maxwell] Primary Care Physician: [No PCP] Outpatient Specialists: [ ] Inpatient Consults: [ ] PROBLEM LIST: Sepsis without septic shock, POA Acute gastroenteritis, POA Acute dehydration, POA Febrile illness, POA Lactic acidosis, POA resolved Hyperbilirubinemia, POA Intractable abdominal pain INTERVAL HISTORY: [Patient was evaluated at bedside. He had low-grade fever this morning now improved. Patient obtain an abdominal ultrasound, pending official results. He reports one episode of vomiting after eating jello. States continues with loose stool 3-5 which he describes as watery and black. Hgb remains with a normal limits. No current abdominal pain. He was UA is negative and blood cultures negative. Strep screening is negative, COVID a and flu canceled as they were ordered on previous visit.] 02/21 patient is evaluated at bedside. States he is feeling much improved without current nausea, vomiting or diarrhea. He continues with low-grade fever overnight, improved with antipyretics. No current abdominal pain at rest however does complain of right upper quadrant pain with palpation. His stool is positive for lactoferrin. Febrile agglutinins, mono and HIV screening were negative. Strep screening negative. Blood culture is negative. Abdominal ultrasound was resulted with gallstones and sludge material noted in the gallbladder with pericholecystic fluid however no ductal dilation. Given persistent fevers in her upper quadrant pain with suspicious signs for cholecystitis, will order a HIDA scan. REVIEW OF SYSTEMS: 12 point ROS reviewed with patient. Pertinent positives mentioned above. Otherwise negative. PHYSICAL EXAM: GENERAL: alert, awake oriented x 3, appears weak and ill HEENT: EOMI, Sclera non icteric, moist mucosa NECK: Supple, no JVD, trachea midline LUNGS: Clear breath sounds bilaterally. No wheezes HEART: Regular rate and rhythm. Normal S1 and S2, without murmurs ABD: Abdomen soft, tender to palpation, positive cheek's sign. Bowel sounds present EXT: No clubbing cyanosis or edema NEURO: Alert and oriented to person, follows commands Vital Signs (last 8hr) Date Time Temp Pulse Resp B/P (MAP) Pulse Ox O2 Delivery O2 Flow Rate FiO2 02/21/25 16:00 99.1 75 18 124/69 98 Room Air 21 02/21/25 11:53 98.6 82 18 114/71 96 Room Air 21 LABS: Hematology Labs: Test 02/20/25 05:58 Range/Units Erythrocyte Sedimentation Rate 31 H 0-15 MM/HR Chemistry Labs: Test 02/21/25 14:50 02/20/25 09:38 02/20/25 05:58 Range/Units Troponin I High Sensitivity 15 4-75 ng/L Lactic Acid Level 1.1 0.8-2.5 mmol/L Sodium Level 140 136-145 mmol/L Potassium Level 4.2 3.5-5.1 mmol/L Chloride Level 103 101-111 mmol/L Carbon Dioxide Level 30 21-32 mmol/L Blood Urea Nitrogen 8 7-18 mg/dL Creatinine 1.0 0.5-1.3 mg/dL Glomerular Filtration Rate Calc 106 >90 mL/min Random Glucose 94 70-105 mg/dL Total Calcium 8.5 8.5-10.1 mg/dL Total Bilirubin 1.0 # 0.2-1.0 mg/dL Aspartate Amino Transf (AST/SGOT) 38 H 10-37 U/L Alanine Aminotransferase (ALT/SGPT) 63 12-78 U/L Alkaline Phosphatase 57 50-136 U/L Total Creatine Kinase 301 H 21-232 U/L C-Reactive Protein, Quantitative 82.60 H 0.5-3.0 mg/L Total Protein 7.1 6.0-8.3 g/dL Albumin 3.2 L 3.5-5.0 g/dL DIAGNOSTICS / RADIOLOGY RESULTS: [ ] PLAN Order HIDA scan Order Dengue fever labs Start broad-spectrum antibiotics with Rocephin and doxycycline Monitor fever and treat aggressively Repeat labs in a.m. Discontinue IVF Advance diet as tolerated Follow blood culture results Toradol for pain GI cocktail p.r.n. Monitor response to treatment Further management per hospital per course NEURO: Minimize central acting medications as possible. Maintain fall precautions, adequate lighting during the day PULMONARY: Supplemental 02 as needed. Maintain aspiration precautions at all times CARDIOVASCULAR: Follow hemodynamics. Vital signs per facility protocol GI & NUTRITION: Continue with nutritional support. Continue stool softeners and laxatives as needed. KIDNEYS & ELECTROLYTES: Strict monitoring of intake, output and overall fluid balance. Avoid nephrotoxic medications to the extent possible. Medications to be dosed according to renal function. Monitor electrolytes and replace as needed ENDOCRINE: Maintain blood glucose between 100-180 at all times. Hypoglycemia protocol in place INFECTIOUS DISEASE: Trend temperature, WBC and procalcitonin level Follow cultures, deescalate antibiotics as soon as possible. Panculture if new onset fever ONCOLOGY/HEMATOLOGY/COAGULATION: Monitor for s/s of bleeding Monitor hemoglobin, coagulation studies as needed SKIN: Pressure ulcer prevention per facility protocol Specialty mattress ORTHO/REHAB: Continue PT/OT Prophylaxis: Continue GI and DVT prophylaxis Code Status: Full Resuscitation Disposition: TBD Other: Total patient care time exceeds 35 minutes excluding all procedures. SADIE ROBERTO February 21, 2025 18:57
[2025-02-21] MEDS: DOXYCYCLINE HYCLATE 100 MG TABLET PO SCH (20:33)
[2025-02-21] MEDS: ketOROlac 30MG VIAL (30MG/ML) IV PRN (20:34)
--- NOTE | 2025-02-21 22:24 | HMCIMG ---
NM HIDA WITH EF/CCK REASON: RUQ pain. COMPARISON: None TECHNIQUE: Hepatobiliary imaging study was performed with 6.5 mCi of technetium Choletec through intravenous route. 3 hour delayed images were obtained. FINDINGS: There is no visualization of gallbladder activity at 3 hours suggestive of acute cholecystitis. Normal visualization of bowel activity is seen within one hour. IMPRESSION: Nonvisualization of gallbladder activity at 3 hours suggestive of acute cholecystitis.
[2025-02-21] MEDS: acetaMINOPHEN 325 MG TAB PO PRN (22:34)
[2025-02-21] MEDS: morPHINE 2 MG SYG IVP PRN (22:34)
[2025-02-22] VITALS (7 sets, daily range): BP systolic 102–118; BP diastolic 58–82; PULSE 55–94; RESP 17–20; TEMP 98.4–99.9; O2SAT 95–97
[2025-02-22] MEDS: HYDROcodone/APAP 5/325 1 TAB TABLET PO PRN (04:22)
[2025-02-22 06:26] LABS: BASOPHILS # (AUTO) 0.05 K/uL (0.00-0.20); BASOPHILS % (AUTO) 0.7 % (0.0-5.0); EOSINOPHILS # (AUTO) 0.09 K/uL (0.00-0.70); EOSINOPHILS % (AUTO) 1.2 % (0.0-8.0); HEMATOCRIT 41.7 % (42-54); IMMATURE GRANULOCYTE ABSOLUTE 0.04 K/uL (0-1); LYMPHOCYTES # (AUTO) 1.9 K/uL (1.0-4.8); LYMPHOCYTES % (AUTO) 25.6 % (21.0-51.0); MEAN CORPUSCULAR HEMOGLOBIN 30.7 pg (27.0-33.0); MEAN CORPUSCULAR HGB CONC 35.3 g/dL (32.0-36.0); MEAN CORPUSCULAR VOLUME 87.1 fL (79-99); MONOCYTES % (AUTO) 12.8 % (3.0-13.0); NEUTROPHILS # (AUTO) 4.4 K/uL (1.8-7.7); NEUTROPHILS % (AUTO) 59.2 % (40.0-77.0); PLATELET COUNT (AUTO) 169 K/uL (130-400); RED BLOOD CELL COUNT(AUTO) 4.79 MIL/uL (4.50-6.20); RED CELL DISTRIBUTION WIDTH 11.3 % (11.0-15.5); WHITE BLOOD COUNT (AUTO) 7.5 K/uL (4.8-10.8)
[2025-02-22 06:46] LABS: BILIRUBIN,TOTAL 0.8 mg/dL (0.2-1.0); POTASSIUM 3.9 mmol/L (3.5-5.1); TOTAL PROTEIN, SERUM 7.2 g/dL (6.0-8.3)
[2025-02-22 07:35] LABS: BAND NEUTROPHILS % (MANUAL) 2 % (0-2); EOSINOPHILS % (MANUAL) 4 % (1-6); LYMPHOCYTES % (MANUAL) 15 % (22-44); MAN.DIFF COMMENT-IMPRESSION MANUAL DIFFERENTIAL; MONOCYTES % (MANUAL) 7 % (2-9); PLATELET MORPHOLOGY COMMENT ADEQUATE; REACTIVE LYMPHOCYTES 9 % (0-0); SEGMENTED NEUTROPHILS % 63 % (40-70); TOTAL CELLS COUNTED 100; WBC MORPHOLOGY REACTIVE LYMPHS 1+
--- NOTE | 2025-02-22 14:29 | CONS ---
CONSULT NOTE: Consulting physician: ER Consulting service: General surgery Reason for consultation: Acute cholecystitis History of present illness: This is a 24-year-old male consulted to surgery after presenting to the hospital earlier this week with concerns of abdominal pain. Patient initially presented to ED where he was discharged home with pain medication. Due to some who no significant improvement patient presented back to the hospital for further evaluation. Initial imaging concerning for cholelithiasis. Patient is sent for HIDA scan which was consistent with cholecystitis. Today WBCs 7.5 with a hemoglobin of 14LFTs unremarkable with a total bilirubin of 0.8 Patient is currently on clear liquid diet. Medical history: None Surgical history: Right inguinal hernia Review of systems: General: No Fever, No Chills, No Night Sweats, No Fatigue, No Malaise, No Appetite, No Other HEENT: No Head Aches, No Visual Changes, No Eye Pain, No Ear Pain, No Dysphasia, No Sinus Congestion, No Post Nasal Drip, No Sore Throat, No Other Pulmonary: No Dyspnea, No Cough, No Pleuritic Chest Pain, No Other Cardiovascular: No: Chest Pain, Palpitations, Orthopnea, Paroxysmal No Dyspnea, Edema, Lt Headedness, Other Gastrointestinal: No: Nausea, Vomiting, Diarrhea, Constipation, Melena, Hematochezia, Other Genitourinary: No Dysuria, No Frequency, No Incontinence, No Hematuria, No Retention, No Other Musculoskeletal: No: other, neck pain, shoulder pain, arm pain, back pain, hand pain, leg pain, foot pain Skin: No Urticaria, No Rash, No Other Neurological: No: Weakness, Numbness, Incoordination, Change in speech, Co nfusion, Seizures, Other Physical exam: General: Awake alert and oriented Heart: Regular rate and rhythm} Lungs: [Clear to auscultation no distress Abdomen: Upper quadrant pain which has resolved after pain medication Assessment: This is a 24-year-old male with concerns of acute cholecystitis Plan: Patient to be allowed diet today he will be made NPO at midnight Patient to be scheduled for robotic cholecystectomy tomorrow by Dr. Arreola Patient will need to sign consent Continue with the IV fluids and IV antibiotics Surgical team to follow patient closely KAIN THIBODEAUX Jr. February 22, 2025 14:29
--- NOTE | 2025-02-22 16:12 | PN ---
[facility] PROGRESS NOTE Date Patient Seen: February 22, 2025 Time of Visit: 17:07 Supervising Physician: [Dr. Maxwell] Primary Care Physician: [No PCP] Outpatient Specialists: [ ] Inpatient Consults: [ ] PROBLEM LIST: Sepsis without septic shock, POA Acute cholecystitis, POA Acute gastroenteritis, POA, resolved Acute dehydration, POA, resolved Febrile illness, POA, improved Lactic acidosis, POA resolved Hyperbilirubinemia, POA, improved Intractable abdominal pain INTERVAL HISTORY: [Patient was evaluated at bedside. He had low-grade fever this morning now improved. Patient obtain an abdominal ultrasound, pending official results. He reports one episode of vomiting after eating jello. States continues with loose stool 3-5 which he describes as watery and black. Hgb remains with a normal limits. No current abdominal pain. He was UA is negative and blood cultures negative. Strep screening is negative, COVID a and flu canceled as they were ordered on previous visit.] 02/21 patient is evaluated at bedside. States he is feeling much improved without current nausea, vomiting or diarrhea. He continues with low-grade fever overnight, improved with antipyretics. No current abdominal pain at rest however does complain of right upper quadrant pain with palpation. His stool is positive for lactoferrin. Febrile agglutinins, mono and HIV screening were negative. Strep screening negative. Blood culture is negative. Abdominal ultrasound was resulted with gallstones and sludge material noted in the gallbladder with pericholecystic fluid however no ductal dilation. Given persistent fevers in her upper quadrant pain with suspicious signs for cho lecystitis, will order a HIDA scan. 02/22 Patient was evaluated at bedside. No fever in the last 24 hours. His HIDA scan is positive for acute cholecystitis. He continues with right upper quadrant abdominal pain. Labs and vitals are within normal limits. He continues on IV antibiotics. Blood cultures remained negative. General surgery is consulted and patient will undergo cholecystectomy tomorrow a.m. REVIEW OF SYSTEMS: 12 point ROS reviewed with patient. Pertinent positives mentioned above. Otherwise negative. PHYSICAL EXAM: GENERAL: alert, awake oriented x 3, appears weak and ill HEENT: EOMI, Sclera non icteric, moist mucosa NECK: Supple, no JVD, trachea midline LUNGS: Clear breath sounds bilaterally. No wheezes HEART: Regular rate and rhythm. Normal S1 and S2, without murmurs ABD: Abdomen soft, tender to palpation, positive cheek's sign. Bowel sounds present EXT: No clubbing cyanosis or edema NEURO: Alert and oriented to person, follows commands Vital Signs (last 8hr) Date Time Temp Pulse Resp B/P (MAP) Pulse Ox O2 Delivery O2 Flow Rate FiO2 02/22/25 12:00 98.6 92 18 102/60 97 Room Air 21 LABS: Hematology Labs: Test 02/22/25 06:00 Range/Units White Blood Count 7.5 4.8-10.8 K/uL Red Blood Count 4.79 4.50-6.20 MIL/uL Hemoglobin 14.7 14.0-18.0 g/dL Hematocrit 41.7 L 42-54 % Mean Corpuscular Volume 87.1 79-99 fL Mean Corpuscular Hemoglobin 30.7 27.0-33.0 pg Mean Corpuscular Hemoglobin Concent 35.3 32.0-36.0 g/dL Red Cell Distribution Width 11.3 11.0-15.5 % Platelet Count 169 130-400 K/uL Mean Platelet Volume 10.6 H 7.5-10.5 fL Immature Granulocyte % (Auto) 0.5 0-1 % Neutrophils (%) (Auto) 59.2 40.0-77.0 % Lymphocytes (%) (Auto) 25.6 21.0-51.0 % Monocytes (%) (Auto) 12.8 3.0-13.0 % Eosinophils (%) (Auto) 1.2 0.0-8.0 % Basophils (%) (Auto) 0.7 0.0-5.0 % Neutrophils # (Auto) 4.4 1.8-7.7 K/uL Lymphocytes # (Auto) 1.9 1.0-4.8 K/uL Monocytes # (Auto) 1.0 0.1-1.0 K/uL Eosinophils # (Auto) 0.09 0.00-0.70 K/uL Basophils # (Auto) 0.05 0.00-0.20 K/uL Absolute Immature Granulocyte (auto 0.04 0-1 K/uL Segmented Neutrophils % 63 40-70 % Band Neutrophils % 2 0-2 % Lymphocytes % (Manual) 15 L 22-44 % Monocytes % (Manual) 7 2-9 % Eosinophils % (Manual) 4 1-6 % Nucleated Red Blood Cells 0.0 0.0-0.19 % Differential Comment MANUAL DIFFERENTIAL Reactive Lymphocytes 9 H 0-0 % White Cell Morphology Comment REACTIVE LYMPHS 1+ Platelet Morphology Comment ADEQUATE Red Blood Cell Morphology NORMAL Chemistry Labs: Test 02/22/25 06:00 02/21/25 14:50 Range/Units Sodium Level 138 136-145 mmol/L Potassium Level 3.9 3.5-5.1 mmol/L Chloride Level 102 101-111 mmol/L Carbon Dioxide Level 30 21-32 mmol/L Blood Urea Nitrogen 12 7-18 mg/dL Creatinine 1.0 0.5-1.3 mg/dL Glomerular Filtration Rate Calc 106 >90 mL/min Random Glucose 98 70-105 mg/dL Lactic Acid Level 1.3 0.8-2.5 mmol/L Total Calcium 8.6 8.5-10.1 mg/dL Total Bilirubin 0.8 0.2-1.0 mg/dL Aspartate Amino Transf (AST/SGOT) 62 H 10-37 U/L Alanine Aminotransferase (ALT/SGPT) 107 H 12-78 U/L Alkaline Phosphatase 59 50-136 U/L Total Protein 7.2 6.0-8.3 g/dL Albumin 3.0 L 3.5-5.0 g/dL Procalcitonin 0.11 0.05-0.5 ng/mL Troponin I High Sensitivity 15 4-75 ng/L DIAGNOSTICS / RADIOLOGY RESULTS: [ ] PLAN Order HIDA scan Order Dengue fever labs Start broad-spectrum antibiotics with Rocephin and doxycycline Monitor fever and treat aggressively Repeat labs in a.m. Discontinue IVF Advance diet as tolerated Follow blood culture results Toradol for pain GI cocktail p.r.n. Monitor response to treatment Further management per hospital per course NEURO: Minimize central acting medications as possible. Maintain fall precautions, adequate lighting during the day PULMONARY: Supplemental 02 as needed. Maintain aspiration precautions at all times CARDIOVASCULAR: Follow hemodynamics. Vital signs per facility protocol GI & NUTRITION: Continue with nutritional support. Continue stool softeners and laxatives as needed. KIDNEYS & ELECTROLYTES: Strict monitoring of intake, output and overall fluid balance. Avoid nephrotoxic medications to the extent possible. Medications to be dosed according to renal function. Monitor electrolytes and replace as needed ENDOCRINE: Maintain blood glucose between 100-180 at all times. Hypoglycemia protocol in place INFECTIOUS DISEASE: Trend temperature, WBC and procalcitonin level Follow cultures, deescalate antibiotics as soon as possible. Panculture if new onset fever ONCOLOGY/HEMATOLOGY/COAGULATION: Monitor for s/s of bleeding Monitor hemoglobin, coagulation studies as needed SKIN: Pressure ulcer prevention per facility protocol Specialty mattress ORTHO/REHAB: Continue PT/OT Prophylaxis: Continue GI and DVT prophylaxis Code Status: Full Resuscitation Disposition: TBD Other: Total patient care time exceeds 35 minutes excluding all procedures. SADIE ROBERTO February 22, 2025 16:12
[2025-02-22] MEDS: DiphenhydrAMINE HCL 25 MG CAPSULE PO PRN (22:37)
[2025-02-23] VITALS (27 sets, daily range): BP systolic 105–145; BP diastolic 55–87; PULSE 54–95; RESP 14–19; TEMP 97.8–99.2; O2SAT 96
--- NOTE | 2025-02-23 09:22 | PN ---
[facility] PROGRESS NOTE Date Patient Seen: February 23, 2025 Time of Visit: 09:22 Supervising Physician: [Dr. Maxwell] Primary Care Physician: [No PCP] Outpatient Specialists: [ ] Inpatient Consults: [ ] PROBLEM LIST: Sepsis without septic shock, POA Acute cholecystitis, POA Acute gastroenteritis, POA, resolved Acute dehydration, POA, resolved Febrile illness, POA, improved Lactic acidosis, POA resolved Hyperbilirubinemia, POA, improved Intractable abdominal pain INTERVAL HISTORY: [Patient was evaluated at bedside. He had low-grade fever this morning now improved. Patient obtain an abdominal ultrasound, pending official results. He reports one episode of vomiting after eating jello. States continues with loose stool 3-5 which he describes as watery and black. Hgb remains with a normal limits. No current abdominal pain. He was UA is negative and blood cultures negative. Strep screening is negative, COVID a and flu canceled as they were ordered on previous visit.] 02/21 patient is evaluated at bedside. States he is feeling much improved without current nausea, vomiting or diarrhea. He continues with low-grade fever overnight, improved with antipyretics. No current abdominal pain at rest however does complain of right upper quadrant pain with palpation. His stool is positive for lactoferrin. Febrile agglutinins, mono and HIV screening were negative. Strep screening negative. Blood culture is negative. Abdominal ultrasound was resulted with gallstones and sludge material noted in the gallbladder with pericholecystic fluid however no ductal dilation. Given persistent fevers in her upper quadrant pain with suspicious signs for cho lecystitis, will order a HIDA scan. 02/22 Patient was evaluated at bedside. No fever in the last 24 hours. His HIDA scan is positive for acute cholecystitis. He continues with right upper quadrant abdominal pain. Labs and vitals are within normal limits. He continues on IV antibiotics. Blood cultures remained negative. General surgery is consulted and patient will undergo cholecystectomy tomorrow a.m. 02/23 patient is evaluated at bedside. He continues with epigastric pain but is controlled. He was evaluated by General surgery and is pending laparoscopic cholecystectomy, patient verbalized understanding. He continues on IV antibiotics and is currently on clear liquid diet. REVIEW OF SYSTEMS: 12 point ROS reviewed with patient. Pertinent positives mentioned above. Otherwise negative. PHYSICAL EXAM: GENERAL: alert, awake oriented x 3, appears weak and ill HEENT: EOMI, Sclera non icteric, moist mucosa NECK: Supple, no JVD, trachea midline LUNGS: Clear breath sounds bilaterally. No wheezes HEART: Regular rate and rhythm. Normal S1 and S2, without murmurs ABD: Abdomen soft, tender to palpation, positive cheek's sign. Bowel sounds present EXT: No clubbing cyanosis or edema NEURO: Alert and oriented to person, follows commands Vital Signs (last 8hr) Date Time Temp Pulse Resp B/P (MAP) Pulse Ox O2 Delivery O2 Flow Rate FiO2 02/23/25 07:37 98.1 64 18 110/61 96 Room Air 02/23/25 05:09 98.2 74 18 105/71 94 Room Air 02/23/25 01:47 99.1 90 17 109/55 95 Room Air LABS: Hematology Labs: Test 02/22/25 06:00 Range/Units White Blood Count 7.5 4.8-10.8 K/uL Red Blood Count 4.79 4.50-6.20 MIL/uL Hemoglobin 14.7 14.0-18.0 g/dL Hematocrit 41.7 L 42-54 % Mean Corpuscular Volume 87.1 79-99 fL Mean Corpuscular Hemoglobin 30.7 27.0-33.0 pg Mean Corpuscular Hemoglobin Concent 35.3 32.0-36.0 g/dL Red Cell Distribution Width 11.3 11.0-15.5 % Platelet Count 169 130-400 K/uL Mean Platelet Volume 10.6 H 7.5-10.5 fL Immature Granulocyte % (Auto) 0.5 0-1 % Neutrophils (%) (Auto) 59.2 40.0-77.0 % Lymphocytes (%) (Auto) 25.6 21.0-51.0 % Monocytes (%) (Auto) 12.8 3.0-13.0 % Eosinophils (%) (Auto) 1.2 0.0-8.0 % Basophils (%) (Auto) 0.7 0.0-5.0 % Neutrophils # (Auto) 4.4 1.8-7.7 K/uL Lymphocytes # (Auto) 1.9 1.0-4.8 K/uL Monocytes # (Auto) 1.0 0.1-1.0 K/uL Eosinophils # (Auto) 0.09 0.00-0.70 K/uL Basophils # (Auto) 0.05 0.00-0.20 K/uL Absolute Immature Granulocyte (auto 0.04 0-1 K/uL Segmented Neutrophils % 63 40-70 % Band Neutrophils % 2 0-2 % Lymphocytes % (Manual) 15 L 22-44 % Monocytes % (Manual) 7 2-9 % Eosinophils % (Manual) 4 1-6 % Nucleated Red Blood Cells 0.0 0.0-0.19 % Differential Comment MANUAL DIFFERENTIAL Reactive Lymphocytes 9 H 0-0 % White Cell Morphology Comment REACTIVE LYMPHS 1+ Platelet Morphology Comment ADEQUATE Red Blood Cell Morphology NORMAL Chemistry Labs: Test 02/22/25 06:00 02/21/25 14:50 Range/Units Sodium Level 138 136-145 mmol/L Potassium Level 3.9 3.5-5.1 mmol/L Chloride Level 102 101-111 mmol/L Carbon Dioxide Level 30 21-32 mmol/L Blood Urea Nitrogen 12 7-18 mg/dL Creatinine 1.0 0.5-1.3 mg/dL Glomerular Filtration Rate Calc 106 >90 mL/min Random Glucose 98 70-105 mg/dL Lactic Acid Level 1.3 0.8-2.5 mmol/L Total Calcium 8.6 8.5-10.1 mg/dL Total Bilirubin 0.8 0.2-1.0 mg/dL Aspartate Amino Transf (AST/SGOT) 62 H 10-37 U/L Alanine Aminotransferase (ALT/SGPT) 107 H 12-78 U/L Alkaline Phosphatase 59 50-136 U/L Total Protein 7.2 6.0-8.3 g/dL Albumin 3.0 L 3.5-5.0 g/dL Procalcitonin 0.11 0.05-0.5 ng/mL Troponin I High Sensitivity 15 4-75 ng/L DIAGNOSTICS / RADIOLOGY RESULTS: [ ] PLAN Pending laparoscopic cholecystectomy per General surgery Continue broad-spectrum antibiotics with Rocephin and doxycycline Monitor fever and treat aggressively Repeat labs in a.m. Discontinue IVF Advance diet as tolerated Follow blood culture results Toradol for pain GI cocktail p.r.n. Monitor response to treatment Further management per hospital per course NEURO: Minimize central acting medications as possible. Maintain fall precautions, adequate lighting during the day PULMONARY: Supplemental 02 as needed. Maintain aspiration precautions at all times CARDIOVASCULAR: Follow hemodynamics. Vital signs per facility protocol GI & NUTRITION: Continue with nutritional support. Continue stool softeners and laxatives as needed. KIDNEYS & ELECTROLYTES: Strict monitoring of intake, output and overall fluid balance. Avoid nephrotoxic medications to the extent possible. Medications to be dosed according to renal function. Monitor electrolytes and replace as needed ENDOCRINE: Maintain blood glucose between 100-180 at all times. Hypoglycemia protocol in place INFECTIOUS DISEASE: Trend temperature, WBC and procalcitonin level Follow cultures, deescalate antibiotics as soon as possible. Panculture if new onset fever ONCOLOGY/HEMATOLOGY/COAGULATION: Monitor for s/s of bleeding Monitor hemoglobin, coagulation studies as needed SKIN: Pressure ulcer prevention per facility protocol Specialty mattress ORTHO/REHAB: Continue PT/OT Prophylaxis: Continue GI and DVT prophylaxis Code Status: Full Resuscitation Disposition: TBD Other: Total patient care time exceeds 35 minutes excluding all procedures. SADIE ROBERTO February 23, 2025 09:22
[2025-02-23 13:12] LABS: C DIFFICILE TOXIN A/B Not Detected (Not Detected); ENTEROAGGREGATIVE ECOLI Not Detected (Not Detected); GIARDIA LAMBLIA Not Detected (Not Detected); PLESIOMONAS SHIGELOIDES Not Detected (Not Detected); SAPOVIRUS Not Detected (Not Detected); SHIGELLA/ENTEROINVASIVE E COLI Not Detected (Not Detected); VIBRIO Not Detected (Not Detected); VIBRIO CHOLERAE Not Detected (Not Detected)
[2025-02-23] MEDS ORDERED: BUPIvacaine/PF 0.25% 30ML VIAL IJ ONE (13:34)
[2025-02-23] MEDS ORDERED: LIDOCAINE PF 100MG/5ML (2%) SYRINGE 5ML ONE (13:39)
[2025-02-23] MEDS ORDERED: rocuRONium bROMide 10MG/1ML 5ML VL ONE ×2 (13:39→14:32)
[2025-02-23] MEDS ORDERED: proPOFol 10 MG/ML 20ML VIAL IV ONE (13:39)
[2025-02-23] MEDS ORDERED: FENTanyl CITRate PF 50 MCG/1 ML 2ML VIAL ONE (13:39)
[2025-02-23] MEDS ORDERED: ondanSETRON 4MG INJ ONE (13:55)
[2025-02-23] MEDS ORDERED: dexaMETHasone SOD PHOSPHATE 10MG/ML 1ML VIAL ONE (13:55)
[2025-02-23] MEDS: cefTRIAXone 1G VIAL IVPB ONE (14:00)
[2025-02-23] MEDS ORDERED: GLYCOPYRROLATE 0.2 MG/ML 5 ML VIAL ONE (14:40)
[2025-02-23] MEDS ORDERED: NEOSTIGMINE METHYLSULFATE 1MG/ML IV ONE (14:40)
[2025-02-23] MEDS ORDERED: MIDAZOLAM HCL 1 MG/ML 2ML VIAL ONE (14:40)
[2025-02-23] MEDS ORDERED: BUPIvacaine HCL/EPINEPHrine/PF 0.25% 10ML VIAL IJ ONE (14:48)
--- NOTE | 2025-02-23 14:56 | OP ---
Operative Note: DATE OF PROCEDURE: 02/23/25 SURGEON: ALEKS MONSALVE MD EXCHANGE CLERK: [] ANESTHESIA: [] GENERAL ANESTHESIOLOGIST/SENIOR SAS PROGRAMMER: [] PREOPERATIVE DIAGNOSIS: [] ACUTE CHOLECYSTITIS POSTOPERATIVE DIAGNOSIS: [] THE SAME SYNOPSIS: [] PROCEDURE: [] Laparoscopic cholecystectomy ESTIMATED BLOOD LOSS: [] Minimal INDICATIONS: [] DESCRIPTION OF PROCEDURE: []With the patient prepped in the usual fashion a supraumbilical incision was additionally directed to meet with placement of the trocar and abdomen insufflated. Three 5 mm trochars were placed in the right upper quadrant under direct vision. The gallbladder was exposed adhesions were taken down and I dissected triangle of Calot. The cystic duct was clearly identified was triple clipped and divided and the cystic artery was double clipped and divided. I took the gallbladder from the liver using cautery dissection and after removed from the liver bed I placed an in a bag. I cauterized the liver bed and I placed 40 cc of Marcaine 0.25% in the side of the abdomen as an abdominal tap block under direct vision. And after adequate hemostasis and irrigation I removed all the trochars under direct vision and the gallbladder was removed from the supraumbilical incision. After removing the gallbladder I placed interrupted [id number] Vicryl's and the fascia. All incisions were closed with anjum Patient was stable at the end of the procedure ALEKS MONSALVE MD February 23, 2025 14:56
[2025-02-23] MEDS: ondanSETRON 4MG INJ ONE (15:36)
[2025-02-23] MEDS: morPHINE 2 MG SYG ONE ×2 (15:46→15:48)
[2025-02-23] MEDS: GABAPENTIN 300 MG CAPSULE ONE (16:06)
[2025-02-23] MEDS: acetaMINOPHEN 100 ML ONE (16:06)
[2025-02-23] MEDS: FAMOTIDINE 20MG VIAL IV ONE (16:07)
[2025-02-23] MEDS: INDOCYANINE GREEN 25 MG VIAL IJ ONE (16:07)
[2025-02-23 23:09] LABS: SPOTTED FEVER GROUP IGG <1:64 (Neg:<1:64); SPOTTED FEVER GROUP IGM <1:64 (Neg:<1:64)
[2025-02-24] VITALS (9 sets, daily range): BP systolic 104–134; BP diastolic 63–78; PULSE 81–125; RESP 17–18; TEMP 97.9–100; O2SAT 96
[2025-02-24 06:49] LABS: BASOPHILS # (AUTO) 0.03 K/uL (0.00-0.20); BASOPHILS % (AUTO) 0.4 % (0.0-5.0); EOSINOPHILS # (AUTO) 0.02 K/uL (0.00-0.70); EOSINOPHILS % (AUTO) 0.2 % (0.0-8.0); HEMATOCRIT 42.1 % (42-54); IMMATURE GRANULOCYTE ABSOLUTE 0.06 K/uL (0-1); LYMPHOCYTES # (AUTO) 1.9 K/uL (1.0-4.8); LYMPHOCYTES % (AUTO) 21.8 % (21.0-51.0); MEAN CORPUSCULAR HEMOGLOBIN 30.5 pg (27.0-33.0); MEAN CORPUSCULAR HGB CONC 34.4 g/dL (32.0-36.0); MEAN CORPUSCULAR VOLUME 88.4 fL (79-99); MONOCYTES # (AUTO) 0.9 K/uL (0.1-1.0); MONOCYTES % (AUTO) 10.6 % (3.0-13.0); NEUTROPHILS # (AUTO) 5.7 K/uL (1.8-7.7); NEUTROPHILS % (AUTO) 66.3 % (40.0-77.0); PLATELET COUNT (AUTO) 239 K/uL (130-400); RED BLOOD CELL COUNT(AUTO) 4.76 MIL/uL (4.50-6.20); RED CELL DISTRIBUTION WIDTH 11.3 % (11.0-15.5); WHITE BLOOD COUNT (AUTO) 8.5 K/uL (4.8-10.8)
[2025-02-24 07:03] LABS: BILIRUBIN,TOTAL 0.8 mg/dL (0.2-1.0); CREATININE 1.1 mg/dL (0.5-1.3); POTASSIUM 4.1 mmol/L (3.5-5.1); TOTAL PROTEIN, SERUM 7.5 g/dL (6.0-8.3)
--- NOTE | 2025-02-24 15:29 | PN ---
[facility] PROGRESS NOTE Date Patient Seen: February 24, 2025 Time of Visit: 15:26 Supervising Physician: [Dr. Maxwell] Primary Care Physician: [No PCP] Outpatient Specialists: [ ] Inpatient Consults: [ ] PROBLEM LIST: Sepsis without septic shock, POA Acute cholecystitis, POA Acute gastroenteritis, POA, resolved Acute dehydration, POA, resolved Febrile illness, POA, improved Lactic acidosis, POA resolved Hyperbilirubinemia, POA, improved Intractable abdominal pain INTERVAL HISTORY: [Patient was evaluated at bedside. He had low-grade fever this morning now improved. Patient obtain an abdominal ultrasound, pending official results. He reports one episode of vomiting after eating jello. States continues with loose stool 3-5 which he describes as watery and black. Hgb remains with a normal limits. No current abdominal pain. He was UA is negative and blood cultures negative. Strep screening is negative, COVID a and flu canceled as they were ordered on previous visit.] 02/21 patient is evaluated at bedside. States he is feeling much improved without current nausea, vomiting or diarrhea. He continues with low-grade fever overnight, improved with antipyretics. No current abdominal pain at rest however does complain of right upper quadrant pain with palpation. His stool is positive for lactoferrin. Febrile agglutinins, mono and HIV screening were negative. Strep screening negative. Blood culture is negative. Abdominal ultrasound was resulted with gallstones and sludge material noted in the gallbladder with pericholecystic fluid however no ductal dilation. Given persistent fevers in her upper quadrant pain with suspicious signs for cho lecystitis, will order a HIDA scan. 02/22 Patient was evaluated at bedside. No fever in the last 24 hours. His HIDA scan is positive for acute cholecystitis. He continues with right upper quadrant abdominal pain. Labs and vitals are within normal limits. He continues on IV antibiotics. Blood cultures remained negative. General surgery is consulted and patient will undergo cholecystectomy tomorrow a.m. 02/23 patient is evaluated at bedside. He continues with epigastric pain but is controlled. He was evaluated by General surgery and is pending laparoscopic cholecystectomy, patient verbalized understanding. He continues on IV antibiotics and is currently on clear liquid diet. 02/24 patient was status post laparoscopic cholecystectomy. He was advancing diet as tolerated. Did do well with full liquid diet, now events with GI soft. Continues with mild abdominal pain but no nausea or vomiting. We will follow General surgery recommendation for discharge. Update: I spoke with the nurse later in the day, states patient was tolerating diet without nausea or vomiting, however did complain of moderate abdominal pain. Will continue to monitor patient and continue IV antibiotics pending further recommendation from General surgery REVIEW OF SYSTEMS: 12 point ROS reviewed with patient. Pertinent positives mentioned above. Otherwise negative. PHYSICAL EXAM: GENERAL: alert, awake oriented x 3, appears weak and ill HEENT: EOMI, Sclera non icteric, moist mucosa NECK: Supple, no JVD, trachea midline LUNGS: Clear breath sounds bilaterally. No wheezes HEART: Regular rate and rhythm. Normal S1 and S2, without murmurs ABD: Abdomen soft, tender to palpation, positive cheek's sign. Bowel sounds present EXT: No clubbing cyanosis or edema NEURO: Alert and oriented to person, follows commands Vital Signs (last 8hr) Date Time Temp Pulse Resp B/P (MAP) Pulse Ox O2 Delivery O2 Flow Rate FiO2 02/24/25 11:30 98.4 112 17 134/72 95 Room Air 02/24/25 07:35 98.2 81 17 115/71 96 Room Air LABS: Hematology Labs: Test 02/24/25 06:37 Range/Units White Blood Count 8.5 4.8-10.8 K/uL Red Blood Count 4.76 4.50-6.20 MIL/uL Hemoglobin 14.5 14.0-18.0 g/dL Hematocrit 42.1 42-54 % Mean Corpuscular Volume 88.4 79-99 fL Mean Corpuscular Hemoglobin 30.5 27.0-33.0 pg Mean Corpuscular Hemoglobin Concent 34.4 32.0-36.0 g/dL Red Cell Distribution Width 11.3 11.0-15.5 % Platelet Count 239 # 130-400 K/uL Mean Platelet Volume 10.2 7.5-10.5 fL Immature Granulocyte % (Auto) 0.7 0-1 % Neutrophils (%) (Auto) 66.3 40.0-77.0 % Lymphocytes (%) (Auto) 21.8 21.0-51.0 % Monocytes (%) (Auto) 10.6 3.0-13.0 % Eosinophils (%) (Auto) 0.2 0.0-8.0 % Basophils (%) (Auto) 0.4 0.0-5.0 % Neutrophils # (Auto) 5.7 1.8-7.7 K/uL Lymphocytes # (Auto) 1.9 1.0-4.8 K/uL Monocytes # (Auto) 0.9 0.1-1.0 K/uL Eosinophils # (Auto) 0.02 0.00-0.70 K/uL Basophils # (Auto) 0.03 0.00-0.20 K/uL Absolute Immature Granulocyte (auto 0.06 0-1 K/uL Nucleated Red Blood Cells 0.0 0.0-0.19 % Chemistry Labs: Test 02/24/25 06:37 Range/Units Sodium Level 138 136-145 mmol/L Potassium Level 4.1 3.5-5.1 mmol/L Chloride Level 100 L 101-111 mmol/L Carbon Dioxide Level 31 21-32 mmol/L Blood Urea Nitrogen 11 7-18 mg/dL Creatinine 1.1 0.5-1.3 mg/dL Glomerular Filtration Rate Calc 95 >90 mL/min Random Glucose 103 70-105 mg/dL Total Calcium 8.7 8.5-10.1 mg/dL Total Bilirubin 0.8 0.2-1.0 mg/dL Aspartate Amino Transf (AST/SGOT) 173 H 10-37 U/L Alanine Aminotransferase (ALT/SGPT) 235 H 12-78 U/L Alkaline Phosphatase 88 50-136 U/L Total Protein 7.5 6.0-8.3 g/dL Albumin 3.0 L 3.5-5.0 g/dL DIAGNOSTICS / RADIOLOGY RESULTS: [ ] PLAN Pending laparoscopic cholecystectomy per General surgery Continue broad-spectrum antibiotics with Rocephin and doxycycline Monitor fever and treat aggressively Repeat labs in a.m. Discontinue IVF Advance diet as tolerated Follow blood culture results Toradol for pain GI cocktail p.r.n. Monitor response to treatment Further management per hospital per course NEURO: Minimize central acting medications as possible. Maintain fall precautions, adequate lighting during the day PULMONARY: Supplemental 02 as needed. Maintain aspiration precautions at all times CARDIOVASCULAR: Follow hemodynamics. Vital signs per facility protocol GI & NUTRITION: Continue with nutritional support. Continue stool softeners and laxatives as needed. KIDNEYS & ELECTROLYTES: Strict monitoring of intake, output and overall fluid balance. Avoid nephrotoxic medications to the extent possible. Medications to be dosed according to renal function. Monitor electrolytes and replace as needed ENDOCRINE: Maintain blood glucose between 100-180 at all times. Hypoglycemia protocol in place INFECTIOUS DISEASE: Trend temperature, WBC and procalcitonin level Follow cultures, deescalate antibiotics as soon as possible. Panculture if new onset fever ONCOLOGY/HEMATOLOGY/COAGULATION: Monitor for s/s of bleeding Monitor hemoglobin, coagulation studies as needed SKIN: Pressure ulcer prevention per facility protocol Specialty mattress ORTHO/REHAB: Continue PT/OT Prophylaxis: Continue GI and DVT prophylaxis Code Status: Full Resuscitation Disposition: TBD Other: Total patient care time exceeds 35 minutes excluding all procedures. SADIE ROBERTO February 24, 2025 15:29
[2025-02-25] VITALS: BP 110/63; PULSE 118; RESP 18; TEMP 100
[2025-02-25 03:56] VITALS: BP 107/65; PULSE 107; RESP 18; TEMP 99.3
[2025-02-25 08:00] VITALS: BP 115/66; PULSE 112; RESP 19; TEMP 100.1; O2SAT 95
[2025-02-25 12:00] VITALS: BP 107/72; PULSE 106; RESP 18; TEMP 99.3
[2025-02-25] MEDS ORDERED: LEVO-70 PO (12:18)
--- NOTE | 2025-02-25 12:19 | DS ---
[facility] DISCHARGE SUMMARY Date Patient Seen: February 25, 2025 Time of Visit: 12:18 Supervising Physician: [Dr. Santos] Primary Care Physician: [No PCP] Outpatient Specialists: [ ] Inpatient Consults: [ ] PROBLEM LIST: Sepsis without septic shock, POA resolved Acute cholecystitis, POA, s/p lap cholecystectomy on 02/[address] Arreola Acute gastroenteritis, POA, resolved Acute dehydration, POA, resolved Febrile illness, POA, improved Lactic acidosis, POA resolved Hyperbilirubinemia, POA, improved Intractable abdominal pain HOSPITAL COURSE: HPI (per admitting provider) [This is a 24-year-old male with no established medical history presents to the ED for evaluation of nausea, vomiting and fever. He was evaluated in the ED with the same yesterday and discharged home. Patient states he continues with generalized body aches an upset stomach, prompting a visit back to the ED. he was found with fever again in the ED today and triggered sepsis protocol. His lactic acid was elevated at 3.5, improved with 1 L LR. He did have hyperbilirubinemia at 1.3 but otherwise his lab work including CBC and CMP have otherwise been unremarkable, lipase is 40. A CT of the abdomen showed fecal material but otherwise unremarkable. He is pending blood cultures. Patient was treated with IVF, Tylenol, Toradol, Zofran, morphine and Rocephin. Upon exam he was found acutely ill-appearing. He has right upper quadrant tenderness with palpation, positive Perkins's sign. Patient denies any previous abdominal surgeries. He reports several episodes of nonbloody vomiting and diarrhea yesterday. Denies any sick contacts at home. No history of drug use.] [Patient was evaluated at bedside. He had low-grade fever this morning now improved. Patient obtain an abdominal ultrasound, pending official results. He reports one episode of vomiting after eating jello. States continues with loose stool 3-5 which he describes as watery and black. Hgb remains with a normal limits. No current abdominal pain. He was UA is negative and blood cultures negative. Strep screening is negative, COVID a and flu canceled as they were ordered on previous visit.] 02/21 patient is evaluated at bedside. States he is feeling much improved without current nausea, vomiting or diarrhea. He continues with low-grade fever o vernight, improved with antipyretics. No current abdominal pain at rest however does complain of right upper quadrant pain with palpation. His stool is positive for lactoferrin. Febrile agglutinins, mono and HIV screening were negative. Strep screening negative. Blood culture is negative. Abdominal ultrasound was resulted with gallstones and sludge material noted in the gallbladder with pericholecystic fluid however no ductal dilation. Given persistent fevers in her upper quadrant pain with suspicious signs for cholecystitis, will order a HIDA scan. 02/22 Patient was evaluated at bedside. No fever in the last 24 hours. His HIDA scan is positive for acute cholecystitis. He continues with right upper quadrant abdominal pain. Labs and vitals are within normal limits. He continues on IV antibiotics. Blood cultures remained negative. General surgery is consulted and patient will undergo cholecystectomy tomorrow a.m. 02/23 patient is evaluated at bedside. He continues with epigastric pain but is controlled. He was evaluated by General surgery and is pending laparoscopic cholecystectomy, patient verbalized understanding. He continues on IV antibiotics and is currently on clear liquid diet. 02/24 patient was status post laparoscopic cholecystectomy. He was advancing diet as tolerated. Did do well with full liquid diet, now events with GI soft. Continues with mild abdominal pain but no nausea or vomiting. We will follow General surgery recommendation for discharge. Update: I spoke with the nurse later in the day, states patient was tolerating diet without nausea or vomiting, however did complain of moderate abdominal pain. Will continue to monitor patient and continue IV antibiotics pending further recommendation from General surgery 02/25 patient is evaluated at bedside. He is ambulating in the hallway and around the room. Has been tolerating diet without nausea, vomiting, or diarrhea. General surgery has cleared the patient for discharge. Patient was advised to follow postop restrictions per General surgery. He will be prescribed antibiotics to take upon discharge. Continue modified diet as discussed. Establish care with PCP for routine evaluation. 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 PCP notified of patient�s admission, hospital course and discharge. New Medications: Levofloxacin (Levofloxacin) 500 Mg Tablet 1 TAB PO DAILY for 5 Days, #5 TAB 0 Refills Discontinued Medications: Amoxicillin/Potassium Clav (Amox Tr-K Clv 875-125 mg Tab) 875 Mg-125 Mg Tablet 1 TAB PO BID for 10 Days, #20 TAB 0 Refills PHYSICAL EXAM: GENERAL: alert, awake oriented x 3, appears weak and ill HEENT: EOMI, Sclera non icteric, moist mucosa NECK: Supple, no JVD, trachea midline LUNGS: Clear breath sounds bilaterally. No wheezes HEART: Regular rate and rhythm. Normal S1 and S2, without murmurs ABD: Abdomen soft, non-tender, s/p lap brittany. Bowel sounds present EXT: No clubbing cyanosis or edema NEURO: Alert and oriented to person, follows commands FOLLOW-UP: Complete oral antibiotics with levofloxacin 500 mg daily x5 days. [place] diet, mostly liquids and advance as tolerated. Pain control with Tylenol and ibuprofen as needed. No strenuous activity as discussed given recent surgery. Follow-up with general surgery outpatient as scheduled. RECOMMENDATIONS: See Discharge Instructions This case was seen and discussed with my supervising physician. More than 30 minutes spent on discharge process, including evaluation of the patient, discussion with nursing staff, medication reconciliation and follow-up appointments SADIE ROBERTO February 25, 2025 12:19
--- NOTE | 2025-02-25 13:30 | NUR ---
PATIENT DISCHARGED HOME ID BAND AND IV REMOVED. DISCHARGE INSTRUCTIONS EXPLAINED AND GIVEN TO PATIENT. PATIENT VERBALIZED UNDERSTANDING. BELONGINGS PACKED AND TAKEN BY PATIENT. WHEELED DOWN TO PRIVATE CAR.
--- NOTE | 2025-02-27 12:26 | NUR ---
Transitional Phone Call Spoke to patient, states he is "doing good." States he is taking prescribed medication as instructed; no questions or concerns. [facility] has a follow up appointment with surgeon - Dr. Arreola on 03/09/2025. States wakes up sweating and wet, denies elevated temperature or fever; referred to PCP - Dr. Flores, follow up appointment is recommended to be scheduled to to three days post discharge; verbalizes understanding and will make that appointment today. No further questions or concerns at this time.
== END 2025-02-25 13:35 | disposition home or self-care (01) | DRG 854 ==
LOC: EDH 08:30 → UNDOADMOB 08:31 → EDHIP 08:31 → OBSVTOIN 14:37 → EDHIP 14:37 → 3DH 02-20 01:19 → EDHIP 02-20 01:19
PROVIDERS: ADMIT Internal Medicine; ATTEND Internal Medicine
PROC: 0FT44ZZ Resection of Gallbladder, Percutaneous Endoscopic Approach (ICD-10-PCS; principal; 2025-02-23 15:10)
DX: A41.9 Sepsis, unspecified organism (principal); E87.20 Acidosis, unspecified; K80.00 Calculus of gallbladder with acute cholecystitis without obstruction; E86.0 Dehydration; K52.9 Noninfective gastroenteritis and colitis, unspecified; K82.8 Other specified diseases of gallbladder
CPT/HCPCS: 36415; 74177; 76700; 78227; 80048; 80053; 80076; 80305; 81001; 82270; 82550; 82656; 82977; 83605; 83630; 83690; 83993; 84145; 84146; 84443; 84484; 85025; 85610; 85651; 86000; 86140; 86308; 86701; 86757; 87040; 87390; 87507; 87633; 87880; 88304; 93005; 96361; 96365; 96366; 96375; 99291; A9537; G0378; J0696; J1100; J1885; J2003; J2250; J2270; J2405; J2470; J2704; J2710; J3010; J3490; J7030; J7120; Q0163; Q9967; A4216; A4222; A4223; A4600; A4649; A4930; C1769; J0665

== ENCOUNTER 2025-10-19 11:28 | Emergency (ER) | payer OTHER ==
[~2025-10-19] VITALS: Ht 175.3 cm; Wt 84.4 kg
[~2025-10-19 11:28] MED LIST changes: -AMOX1TAB16 PO; +LEVO-70 PO
[2025-10-19 11:29] VITALS: BP 128/64; PULSE 107; RESP 20; TEMP 101.2
[2025-10-19 11:50] LABS: RAPID GROUP A STREP negative (NEGATIVE)
[2025-10-19 11:55] LABS: SARS-CoV-2, RNA, NAAT NEGATIVE SARS CoV-2 (NEGATIVE)
[2025-10-19 12:01] LABS: INFLUENZA TYPE B Negative For Type B (NEGATIVE)
[2025-10-19 12:22] LABS: INFLUENZA TYPE A Positive For Type A (NEGATIVE)
[2025-10-19] MEDS ORDERED: OSEL75 PO (12:45)
--- NOTE | 2025-10-19 12:46 | ERN ---
ED Note History of Present Illness Stated Complaint: FEVER, COUGH, CONGESTION X 5 DAYS Chief Complaint: Cough Time Seen by MD: 11:32 Time Seen by Midlevel: 11:36 Dictation: 25-year-old male no medical history coming in with complaints of flu-like sympt oms for two days. Denies having any chest pain, shortness a breath, nausea, vomiting or diarrhea. Allergies: Coded Allergies: No Known Drug Allergies (Unverified Allergy, Unknown, 02/18/25) Home Meds Active Scripts Levofloxacin (Levofloxacin) 500 Mg Tablet, 1 TAB PO DAILY for 5 Days, #5 TAB 0 Refills Prov:SADIE ROBERTO PAC 02/25/25 Past Medical History Past Medical History: No Pertinent History Surgical History: Other Surgical History Other: HERNIA REPAIR Review of System Dictation Constitutional: Generalized body aches Eyes: Negative for injury, pain,redness, and discharge ENT: Negative for injury,pain or swelling, nasal congestion Cardiovascular: Negative for chest pain, palpitations, and edema Respiratory: Negative for shortness of breath, cough, and wheezing, Abdomen/GI: Negative for abdominal pain, nausea, vomiting, diarrhea, and constipation Back: Negative for injury and pain : Negative for injury, bleeding and discharge MS/Extremity: Negative for injury and deformity Skin: Negative for rash, and discoloration Neuro: Negative for headache, weakness, numbness, tingling, and seizure Psych: Negative for suicide ideation, homicidal ideation, and hallucinations Review of Systems: was completed Initial Vital Sign VS Vital Signs Date Time Temp Pulse Resp B/P (MAP) Pulse Ox O2 Delivery O2 Flow Rate FiO2 10/19/25 11:29 101.1 107 20 128/64 99 Room Air 0 Physical Exam Dictation General: awake, alert, NAD Head/Face: Normocephalic, atraumatic Eyes: PERRL, EOMI, vision at baseline ENT: oral cavity clear, TMs clear, no signs of infection Neck: Trachea midline, supple, no nuchal rigidity Cardiovascular: RRR, normal S1/S2, No MRGs, no JVD Respiratory: CTAB, no respiratory distress, No rales or wheezes Abdomen: Soft, non-tender, non-distended, normal bowel sounds, no guarding or rebound. Skin: Warm, dry, normal turgor, no rash MS/Extremity: Pulses equal, no cyanosis, neurovascular intact, FROM Neuro: COAx4, GCS 15, strength 5/5, CN 2-12 intact, normal cerebellar exam, normal gait, Psych: Normal behavior, mood, and affect normal Results (Laboratory/Radiology) Laboratory/Radiology Laboratory Tests Test 10/19/25 11:35 Influenza Type A Antigen Positive For Type A Influenza Type B Antigen Negative For Type B SARS-CoV-2, RNA, NAAT NEGATIVE SARS CoV-2 Group A Streptococcus Rapid negative (NEGATIVE) ED Course ED Course Orders Procedure Category Date Status Time Covid Rna Naat LAB 10/19/25 Complete 11:34 Influenza Type A & B, LAB 10/19/25 Complete Rapid 11:34 Rapid (Group A Strep) LAB 10/19/25 Complete 11:34 Guaifenesin-Codeine PHA 10/19/25 Complete Syrup 5ml (Robitussi 11:34 Fluticasone PHA 10/19/25 Complete Propionate 50mcg 11:34 Ketorolac PHA 10/19/25 Complete Tromethamine 15mg/Ml 12:00 Acetaminophen 500mg PHA 10/19/25 Complete Tab (Tylenol 500mg T 12:00 Current Medications Medications (Trade) Dose Ordered Sig/Elizabeth Route PRN Reason Start Time Stop Time Status Last Admin Dose Admin Acetaminophen (TYLenol 500MG TAB) 1,000 mg ONCE ONCE PO 10/19/25 12:00 10/19/25 12:01 DC Fluticasone Propionate (FLOnase 50 mcg/ spray 16g bottle) 1 SPRAY ONCE STAT EN 10/19/25 11:34 10/19/25 11:40 DC Guaifenesin/ Codeine Phosphate (RobiTUSSin AC 5 ML SYRUP) 10 ml ONCE STAT PO 10/19/25 11:34 10/19/25 11:40 DC Ketorolac Tromethamine (toRADol) 15 mg ONCE ONCE IM 10/19/25 12:00 10/19/25 12:01 DC Vital Signs Date Time Temp Pulse Resp B/P (MAP) Pulse Ox O2 Delivery O2 Flow Rate FiO2 10/19/25 11:29 101.1 107 20 128/64 99 Room Air 0 Medical Decision Making MDM MDM: 25-year-old male no medical history coming in with complaints of flu-like symptoms for two days. Denies having any chest pain, shortness a breath, nausea, vomiting or diarrhea. Swabs are positive for influenza A. We will prescribe patient Tamiflu to take at home. Vital signs are stable, no hypoxia, no tachypnea. No respiratory distress. No chest pain. Discussed findings with the patient educated to take [id number] symptomatic control like Mucinex, Robitussin, Tylenol and Motrin for fever. Patient verbalized understanding, answered all questions. Differential diagnosis: COVID, flu, strep, viral syndrome Rationale: Tests considered and ordered secondary to shared decision making include: Previous outside records reviewed: Old ER visits. Risk of complication and/or morbidity or mortality of patient management: None Medications-Per medication reconciliation Need for hospitalization: Patient does not meet criteria for hospitalization. Need for emergency major/minor surgery: No There are no social concerns with this patient. Prescription drug management Prescriptions will include symptomatic care Patient's prior external medical records from other ER visits were reviewed by me as indicated. Prior testing and results from previous visits were reviewed. Prior tests were taken into account with medical decision making and resource ut ilization, independent historian/historians were used to obtain complete medical history. I independently interpreted the test that were performed, results were reviewed by me and considered findings on radiology if ordered. Medical management and examination interpretation discussions were had by me with other qualified healthcare professionals as indicated for the patient's car e. DX & DISP Disposition: Discharge Departure Impression: Primary Impression: Influenza A Condition: Stable Scripts Oseltamivir Phosphate (Tamiflu) 75 Mg Cap 1 CAP PO BID for 5 Days, #10 CAP 0 Refills Prov: JACQUES LEMOS CNP 10/19/25 Additional Instructions: You tested positive for influenza A. I prescribed him a flu to you to take twice a day for five days. Symptoms can last from 7-10 days. You can take [id number] medications for symptomatic control like Mucinex or Robitussin for congestion and cough. Tylenol or Motrin for body aches and fever. Stay hydrated. Follow up with your primary care doctor in 2-3 days. Return to the ER if you develop any worsening symptoms. Referrals: JAMIE LEIGH (PCP) Time of Disposition: 12:46 I have reviewed the case, and I agree with, Diagnosis and Plan JACQUES LEMOS [facility] Oct 19, 2025 12:46
[2025-10-19 13:25] VITALS: TEMP 101.1
== END 2025-10-19 13:34 | disposition home or self-care (01) ==
LOC: EDH 11:28
DX: J10.1 Influenza due to other identified influenza virus with other respiratory manifestations (principal); Z98.890 Other specified postprocedural states; Z20.822 Contact with and (suspected) exposure to COVID-19
CPT/HCPCS: 99283; 87635; 87880; 87804 ×2; 96372; J1885